=== PATIENT | female | born 1945 | race Caucasian/White ===

== ENCOUNTER 2020-02-23 15:10 | Outpatient (CLI) | payer MEDICARE, SELFPAY ==
--- NOTE | 2020-02-23 | USCV_ITS ---
Yaneli Hurst Age: 75 Gender: F : 1945 Exam Date: 02/23/2020 15:54 Ordering Phys: Zina Bradshaw MD Technologist: Fan Wilson Exam Location: [facility] [place] Indication: SOB BP: 124 / 70 HR: 60 Rhythm: Sinus Technical Quality: Good MEASUREMENTS (Male / Female) Normal Values 2D ECHO LV Diastolic Diameter PLAX 3.9 cm 4.2 - 5.9 / 3.9 - 5.3 cm LV Systolic Diameter PLAX 2.6 cm IVS Diastolic Thickness 0.7 cm 0.6 - 1.0 / 0.6 - 0.9 cm IVS Systolic Thickness 1.3 cm LVPW Diastolic Thickness 1.1 cm 0.6 - 1.0 / 0.6 - 0.9 cm LVPW Systolic Thickness 1.4 cm LVOT Diameter 2.1 cm LV Ejection Fraction 2D Teich 61.7 % LV Ejection Fraction MOD 2C 65.0 % LV Ejection Fraction 2C AL 64.4 % LA Diameter 3.3 cm LA Width 3.5 cm LA Height 3.5 cm RA Width 3.0 cm RA Height 4.1 cm M-MODE LV Diastolic Diameter MM 4.4 cm 4.2 - 5.9 / 3.9 - 5.3 cm LV Systolic Diameter MM 2.5 cm LV Ejection Fraction MM Teich 75.8 % IVS Diastolic Thickness MM 1.0 cm 0.6 - 1.0 / 0.6 - 0.9 cm IVS Systolic Thickness MM 1.5 cm LVPW Diastolic Thickness MM 1.0 cm 0.6 - 1.0 / 0.6 - 0.9 cm LVPW Systolic Thickness MM 1.7 cm RV Diastolic Diameter MM 1.7 cm Aortic Annulus Diameter 2.7 cm LA Ao Ratio MM 1.2 MV E Point Septal Separation 1.1 cm DOPPLER AV Peak Velocity 142.0 cm/s LVOT Peak Velocity 84.0 cm/s AV Area Cont Eq vti 1.8 cm squared AV Area Cont Eq pk 2.0 cm squared MV Area PHT 5.0 cm squared Mitral E to A Ratio 0.5 MV E' Velocity 52.0 cm/s TR Peak Velocity 243.0 cm/s TR Peak Gradient 23.7 mmHg TV Peak E Velocity 108.0 cm/s Right Atrial Pressure 3.0 mmHg Pulmonary Artery Systolic Pressu 26.6 mmHg PV Peak Velocity 89.0 cm/s FINDINGS Left Ventricle Normal left ventricular cavity size. Normal left ventricular systolic function. No regional wall motion abnormalities. Left ventricular ejection fraction is estimated at 65 %. Grade I/IV diastolic dysfunction (abnormal relaxation filling pattern), normal to mildly elevated filling pressures. Right Ventricle The right ventricle is normal in size and function. Right Atrium The right atrium is normal in size. Left Atrium The left atrium is normal in size. Mitral Valve Structurally normal mitral valve without significant stenosis or prolapse. There is moderate mitral regurgitation. Aortic Valve Structurally normal aortic valve without significant sclerosis or stenosis. There is no aortic regurgitation. Tricuspid Valve Moderate tricuspid valve regurgitation. Pulmonic Valve Structurally normal pulmonic valve without significant stenosis. There is no pulmonic regurgitation. Pericardium Normal pericardium without effusion. Aorta Normal ascending aorta dimension. CONCLUSIONS 1-Normal left ventricular cavity size. Normal left ventricular systolic function. No regional wall motion abnormalities. Left ventricular ejection fraction is estimated at 65 %. Grade I/IV diastolic dysfunction (abnormal relaxation filling pattern), normal to mildly elevated filling pressures. 2-Moderate tricuspid valve regurgitation. 3-There is no pericardial effusion. 4- There is moderate mitral regurgitation. 5-Right atrial pressure is around 5 mm of mercury. 6-No significant change since the prior echocardiogram study of 12/22/2014. Mitchel Monique MD (Electronically Signed) Final Date: 23 February 2020 18:01 S
== END 2020-02-23 15:11 | disposition home or self-care (01) ==
LOC: RT 15:12 → RAD 15:21
PROVIDERS: Visit Provider Family Medicine
DX: R06.02 Shortness of breath (principal); I08.1 Rheumatic disorders of both mitral and tricuspid valves
CPT/HCPCS: 93306

== ENCOUNTER 2020-04-19 07:54 | Outpatient (CLI) | payer MEDICARE, SELFPAY ==
--- NOTE | 2020-04-19 14:09 | PFTS_ITS ---
Date of Study:04/19/20 Date of Dictation: MECHANICS: Forced vital capacity (FVC) is normal. Forced expiratory volume in one second (FEV1) is normal. FEV1/FVC is normal. FLOW VOLUME LOOP: Normal. LUNG VOLUMES: Total lung capacity (TLC) is normal. Residual volume (RV) is normal. DIFFUSING CAPACITY FOR CARBON MONOXIDE: Moderately reduced. INTERPRETATION: The pulmonary function tests are normal. No postbronchodilator spirometry was performed. Lung volumes are normal. Gas exchange (DLCO) is moderately reduced. MTDD
== END 2020-04-19 07:55 | disposition home or self-care (01) ==
LOC: RT 07:58
PROVIDERS: Visit Provider Family Medicine
DX: R06.02 Shortness of breath (principal)
CPT/HCPCS: 94010; 94726; 94729

== ENCOUNTER 2020-04-28 16:10 | Outpatient (CLI) | payer MEDICARE, SELFPAY ==
--- NOTE | 2020-04-28 16:23 | CTR_ITS ---
PROCEDURE INFORMATION: Exam: CT Chest Without Contrast Exam date and time: 04/28/2020 4:27 PM Age: 75 years old Clinical indication: Shortness of breath; Prior surgery; Surgery date: 6+ months; Surgery type: Lt breast TECHNIQUE: Imaging protocol: Computed tomography of the chest without contrast. Radiation optimization: All CT scans at this facility use at least one of these dose optimization techniques: automated exposure control; mA and/or kV adjustment per patient size (includes targeted exams where dose is matched to clinical indication); or iterative reconstruction. COMPARISON: CT chest w con* [id number] 01/19/2016 9:54 AM RADIATION DOSE METRICS: Total DLP (mGy-cm): 378.59 FINDINGS: Lungs: There is increasing/new interstitial and ground-glass opacities in both lower lobes. There is unchanged bronchiectasis with peribronchial thickening and some scattered mucous plugging. Many of the multiple pulmonary nodules are unchanged including the posterior left apical 5 mm nodule image 9 and a 7 mm anterior nodule right lung image 29. There is a new pleural base mass left lung image 36 measuring 1.0 x 1.3 cm and a new nodule in the right lung image 32 measuring 5 mm in size. Additional subcentimeter nodules in the right middle lobe image 32 and right lower lobe image 41 are unchanged. Previously visualized ground-glass opacity in the right middle lobe has improved but is not completely resolved. There is no dense lobar consolidation. There is unchanged left apical ground-glass opacity/pleural thickening with calcification image 11. Pleural space: Unremarkable. No pneumothorax. No pleural effusion. Heart: The heart is enlarged. Mediastinal space: A small hiatal hernia is present. Aorta: Unremarkable. No aortic aneurysm. Lymph nodes: There is no pathologic axillary adenopathy. Postoperative changes of a left axillary node dissection and left breast lumpectomy are noted. There is an 8 mm short axis lymph node left axilla with a fatty center. Multiple subcentimeter mediastinal lymph nodes are noted in there is no pathologic mediastinal or hilar adenopathy. Bones/joints: Unremarkable. No acute fracture. Soft tissues: Unremarkable. CT/CT chest wo con [id number] IMPRESSION: 1. There is increasing/new interstitial and ground-glass opacities in both lower lobes. 2. Multiple pulmonary nodules. Many of the nodules are unchanged in appearance but there is a new pleural base mass left lung and a new pulmonary nodule in the apical segment right lower lobe. Fleischner Society follow up recommendations for incidental nodules are not indicated. Follow up per the patient's medical condition. Radiation Dose CTDIVOL = (mGy): DLP = 378.59 (mGy-cm)
== END 2020-04-28 16:11 | disposition home or self-care (01) ==
LOC: CT 16:16
PROVIDERS: PCP Family Medicine; Visit Provider Internal Medicine Pulmonary Disease
DX: R06.02 Shortness of breath (principal); R91.8 Other nonspecific abnormal finding of lung field
CPT/HCPCS: 71250

== ENCOUNTER → 2020-06-06 11:33 | Outpatient (BNVA) | payer MEDICARE, SELFPAY | PROVIDERS: PCP Family Medicine; Visit Provider Internal Medicine Critical Care Medicine | DX: Z20.828 Contact with and (suspected) exposure to other viral communicable diseases (principal) | CPT/HCPCS: 87635 ==

== ENCOUNTER 2020-06-10 05:52 | Day surgery (SDC) | payer MEDICARE, SELFPAY ==
[2020-06-09 07:33] VITALS: BMI 25.7
[2020-06-10 06:02] VITALS: BP 135/70; PULSE 49; RESP 18; TEMP 36.1; O2SAT 99
[2020-06-10] MEDS: sodium chloride 0.9% 1,000 ML 30 ML IV (06:24)
--- NOTE | 2020-06-10 06:51 | ANES.PREANE2 ---
Pre-Anesthetic Assessment Pre-Anesthetic Assessment: Height/Weight: Height 1.63 m Weight 68.039 kg Temp Pulse Resp BP Pulse Ox 97 F L 49 L 18 135/70 99 06/10/20 06:02 06/10/20 06:02 06/10/20 06:02 06/10/20 06:02 06/10/20 06:02 Preop Diagnosis: Suspected metastatic cancer Proposed Procedure: Operation Date: 06/10/20 07:00 Proposed Procedures p Ebus R91.1 [id number](Not Applicable) - Parris Huffman MD Was Beta Brad taken within 24 hours: Yes Last intake: Intake Last Liquid Date 06/09/20 Last Liquid Time 23:30 Last Solid Date 06/09/20 Last Solid Time 20:00 Social: Social History: No alcohol and No tobacco Exam: Pre-Anes Outpt Exam: oriented x 3, clear to auscultation bilaterally and regular rate & rhythm Airway: Submandibular: WNL Cervical ROM: WNL MP: 2 Dentition: Full Pulmonary: Pulmonary: HARKINS CV/HEM: CV/HEM: HTN : : None reported Hepatic: Hepatic: None reported GI: GI: None reported Metabolic: Metabolic: None reported Musc/skel: Musc/skel: None reported Neuropsych: Neuropsych: None reported Anesthetic Plan: ASA status: 2 Anesthesia: General Risk of > 500 ml blood loss (7ml/kg in children): No Meds/Allergies Current Medications: Current Medications Generic Name Dose Route Start Last Admin Trade Name Freq PRN Reason Stop Dose Admin Sodium Chloride 1,000 mls @ 30 ml s/hr 06/10/20 06:00 06/10/20 06:24 Sodium Chloride 0.9% IV 06/11/20 05:59 30 mls/hr .Q24H GERI Administration PFSH Anesthesia PFSH: Surgical History H/O colonoscopy H/O right cataract extraction Family History Mother Hypertension Father Hypertension Stroke Social History Smoking and tobacco status: never smoked Second hand smoke exposure: Yes Smoking risk assessment/counseling performed?: No Alcohol intake: current Alcohol intake frequency: holidays/special occasions only Lives independently: Yes Household members: spouse Housing: House Marital status: Current occupational status: retired Pets and animals: Yes History of recent travel: No Current gender identity: Female Data Anesthesia Cardiac Studies: No Data to Display
--- NOTE | 2020-06-10 06:54 | W.PM.OPSUD ---
Surgery/Procedure H&P Update DATE OF PROCEDURE: June 10, 2020 DATE H&P PERFORMED: 06/06/20 H&P UPDATE INFORMATION: I have reviewed H&P completed within last 30 days, I have examined patient prior to procedure and No changes to prior documentation PREOP DIAGNOSIS: Suspected metastatic cancer PRIMARY INDICATION FOR PROCEDURE: Suspected metastatic breast cancer PLANNED PROCEDURE: Bronchoscopy with inspection of the airway, endobronchial sound guided transbronchial needle aspiration of lymph nodes and control of bleeding Operation Date: 06/10/20 07:00 Proposed Procedures p Ebus R91.1 [id number](Not Applicable) - Biplab MD Nathanael
[2020-06-10] MEDS: lidocaine 1% INJ 20 mL INTRAVESIC (07:31)
[2020-06-10 08:13] VITALS: BP 170/81; PULSE 72; RESP 12; TEMP 36.1; O2SAT 99
[2020-06-10 08:20] VITALS: BP 156/83; PULSE 58; RESP 15; O2SAT 100
--- NOTE | 2020-06-10 08:22 | PM.OP ---
Operative Report Date of procedure: June 10, 2020 Pre-op Diagnosis: Suspected metastatic cancer Post-op diagnosis: same Brief History: This is a 75-year-old lady with history of stage I breast cancer coming in with recently identified PET positive hilar midsternal lymphadenopathy. The patient underwent bronchoscopy, endobronchial sound guided transbronchial needle aspiration of lymph nodes Procedure: Name of the procedure: Bronchoscopy with inspection of the airway, bronchoalveolar lavage, endobronchial ultrasound-guided transbronchial needle aspiration of lymph nodes and control of bleeding. Indication: Suspected metastatic lung cancer Anesthesia: General anesthesia. Local anesthesia: The kylah in the right and left mainstem bronchi were anesthetized with 1% lidocaine, 3 mL. Description of the procedure: The procedure was explained to the patient and the consent was obtained. The patient was brought to the OR. The patient underwent endotracheal intubation for general anesthesia. Following induction of general anesthesia, the bronchoscope was advanced through the ET tube. The lower trachea appeared to be normal. The kylah was sharp. The kylah, the right and left mainstem bronchi are anesthetized with 1% lidocaine. In a systematic manner bilateral bronchial tree was then examined. The bronchoscope was advanced into the left mainstem bronchus. There was no erythema, or areas of cobblestoning. The left upper lobe, lingula and left lower lobe bronchi were examined up to the third subsegmental level and no abnormalities were identified. There is no endobronchial lesion, active bleeding or mucous plug. The bronchoscope was then introduced into the right mainstem bronchus. The right upper lobe, right middle lobe and right lower lobe bronchi were examined up to the third subsegmental level and no abnormalities were identified. There was mild secretion throughout the airways. Bronchoalveolar lavage was performed from the medial segment of the right middle lobe. 60 mL of saline was instilled, fluid return was 25 mL. The fluid was cloudy. The endobronchial ultrasound was introduced through the ET tube. Mediastinal and hilar lymphadenopathy was identified with the ultrasound. Fine-needle aspiration was performed from station 7 and 10. Samples: 1. Bronchoalveolar lavage specimen was sent for cell count and differential, CD4 CD8 ratio, Gram stain and culture, fungal stain and culture, AFB stain and culture and cytology. 2. The transbronchial needle aspiration of the aforementioned lymph node groups were sent for cytology and histopathology. Complications: There was no immediate complications.
[2020-06-10 08:25] VITALS: BP 159/74; PULSE 56; RESP 16; TEMP 36.1; O2SAT 95
[2020-06-10 08:32] VITALS: BP 140/91; PULSE 50; RESP 16; TEMP 36.1; O2SAT 98
--- NOTE | 2020-06-10 08:32 | XR_ITS ---
WS: [id number] Portable AP upright chest, 06/10/2020 Clinical Data: post bronchoscopy Comparison: PA and lateral chest, 08/07/2018. Findings: No nodules, masses or effusions are seen. The heart is normal. The pulmonary vascularity is not increased. There are clips adjacent to the left cardiac border and also in the left axilla from surgery. There is a left cardiophrenic fat pad or cyst present. The aortic arch and descending aorta show tortuosity. XR/XR chest 1V portable [id number] Impression: 1. Atherosclerosis. 2. No change in probable left cardio phrenic fat pad or cyst.
[2020-06-10 09:00] VITALS: BP 151/84; PULSE 50; RESP 18; O2SAT 98
--- NOTE | 2020-06-10 09:25 | P.PCN_ITS ---
PACU note PACU note: VSS, Good respiratory effort, report to COLD REDUCTION ROLLER Post-Anesthesia Exam: awake Disposition: other
--- NOTE | 2020-06-10 09:25 | PM.PACU ---
PACU note PACU note: VSS, Good respiratory effort, report to ELEVATOR CONSTRUCTOR HELPER Post-Anesthesia Exam: awake Disposition: other
--- NOTE | 2020-06-10 09:33 | ANE.PACU2 ---
Inpatient post-anesthesia follow up: Airway intact: Yes Vital signs: Temperature 97 F Pulse Rate 50 Respiratory Rate 18 Blood Pressure 151/84 Pulse Oximetry 98 Oxygen Delivery Me thod Room Air Oxygen Flow Rate 6 Fraction of Inspir ed Oxygen Hydration adequate: Yes Nausea and vomiting: No Pain level: 1 Mental status: Baseline
--- NOTE | 2020-06-10 10:00 | PTH.EBUS ---
Endobronchial Ultrasound Specimen(s): Lymph node, station 7 Gross: Specimen is received fresh on a single slide labeled with the patient's name and date of , measuring 2 cc of blood and 5 Diff-Quik slides are made first cytology and rapid onsite interpretation. Preliminary Impression: Lymph node, station 7, EBUS, cytology, rapid onsite evaluation: ?Peripheral blood elements. ?Negative for malignancy. - Specimen Information Pathologist: Aman Wei Date: 06/10/20 Specimen reported at what time: 08:35 - Clinician Specimen collection time: 08:10 Clinician reported to: Parris Huffman
[2020-06-20 14:29] LABS: Miscellaneous Test See Scanned Lab Rpt
== END 2020-06-10 09:28 | disposition home or self-care (01) ==
PROVIDERS: PCP Family Medicine; Visit Provider Internal Medicine Critical Care Medicine
PROC: BB4BZZZ Ultrasonography of Pleura (ICD-10-PCS; principal; 2020-06-10 07:00)
DX: R91.1 Solitary pulmonary nodule (principal); Z79.82 Long term (current) use of aspirin; I10 Essential (primary) hypertension
CPT/HCPCS: 12345; 31625; 31627; 71045; 80500; 87015; 87070; 87102; 87116; 87176; 87205; 87206; 87801; 88305; J1100; J2370; J2405; J2704; J2710; J3010; J3490; J7030

== ENCOUNTER 2020-10-10 12:00 | Outpatient (CLI) | payer MEDICARE, SELFPAY | END 2020-10-10 12:01 | disposition home or self-care (01) | LOC: SLEEP 10-11 10:31 | PROVIDERS: PCP Family Medicine; Visit Provider Internal Medicine Pulmonary Disease | DX: G47.34 Idiopathic sleep related nonobstructive alveolar hypoventilation (principal) | CPT/HCPCS: 94762 ==

== ENCOUNTER 2020-12-28 12:00 | Outpatient (CLI) | payer MEDICARE, SELFPAY | END 2020-12-28 12:01 | disposition home or self-care (01) | LOC: SLEEP 12-29 13:00 | PROVIDERS: PCP Family Medicine; Visit Provider Internal Medicine Pulmonary Disease | DX: G47.33 Obstructive sleep apnea (adult) (pediatric) (principal); G47.34 Idiopathic sleep related nonobstructive alveolar hypoventilation; I27.21 Secondary pulmonary arterial hypertension | CPT/HCPCS: G0399 ==

== ENCOUNTER → 2022-04-19 10:44 | Outpatient (BNVA) | payer MEDICARE, SELFPAY | PROVIDERS: PCP Family Medicine; Visit Provider Podiatrist Foot & Ankle Surgery | DX: B35.1 Tinea unguium (principal) | CPT/HCPCS: 11720; 99203; 99204 ==

== ENCOUNTER → 2022-06-21 09:01 | Outpatient (BNVA) | payer MEDICARE, SELFPAY | PROVIDERS: PCP Family Medicine; Visit Provider Podiatrist Foot & Ankle Surgery | DX: B35.1 Tinea unguium (principal) | CPT/HCPCS: 99213 ==

== ENCOUNTER → 2022-10-31 15:08 | Outpatient (BNVA) | payer MEDICARE, SELFPAY | PROVIDERS: PCP Family Medicine; Visit Provider Podiatrist Foot & Ankle Surgery | DX: B35.3 Tinea pedis (principal); B35.1 Tinea unguium | CPT/HCPCS: 99213 ==

== ENCOUNTER 2022-11-03 10:09 | Emergency (ER) | payer MEDICARE, SELFPAY ==
[2022-11-03 10:15] VITALS: BP 148/101; PULSE 54; RESP 16; TEMP 36.7; O2SAT 96; BMI 24.9
--- NOTE | 2022-11-03 10:22 | XRR_ITS ---
PROCEDURE INFORMATION: Exam: XR Right Ankle Exam date and time: 11/03/2022 10:38 AM Age: 77 years old Clinical indication: Injury or trauma; Fall; Blunt trauma; Ankle; Right; Additional info: Fall injury TECHNIQUE: Imaging protocol: Radiologic exam of the right ankle. Views: 3 or more views. COMPARISON: No relevant prior studies available. FINDINGS: Bones/joints: Negative for acute bony abnormality. Soft tissues: Normal. XR/XR ankle RT min 3V* [id number] IMPRESSION: No acute findings.
--- NOTE | 2022-11-03 10:22 | XRR_ITS ---
PROCEDURE INFORMATION: Exam: XR Right Foot Exam date and time: 11/03/2022 10:38 AM Age: 77 years old Clinical indication: Injury or trauma; Fall; Blunt trauma; Foot; Right; Additional info: Fall injury TECHNIQUE: Imaging protocol: Radiologic exam of the right foot. Views: 3 or more views. COMPARISON: No relevant prior studies available. FINDINGS: Bones/joints: Negative for acute bony abnormality. Soft tissues: Normal. XR/XR foot RT min 3V* [id number] IMPRESSION: No acute findings.
--- NOTE | 2022-11-03 10:41 | ED_ITS ---
HPI - Extremity Problem General: Chief complaint: Extremity Injury, Lower Stated complaint: fall, hurt foot Time Seen by Provider: 11/03/22 10:21 History of Present Illness: Patient is a 77-year-old female comes to the ED with right foot injury. Patient states that she was in a sitting position while cleaning up a mess on the floor. She states that she went to stand up and she rolled her right foot and ankle. She is now having pain in in her right foot that she describes as mild when at rest. Pain is located at the top midfoot region. Pain worsens with ambulation. Denies any other injuries. Associated symptoms: Deny chest pain, fever(s) or rash Review of Systems Const: Denies: fever(s), chills or fatigue Eyes: Denies: change in vision or eye discomfort ENMT: Denies: throat pain, odynophagia, nasal discharge or nasal congestion Card: Denies: chest pain, palpitations, edema, swelling of feet/ankles, dyspnea on exertion or orthopnea Resp: Denies: dyspnea, productive cough or non-productive cough GI: Denies: abdominal pain, nausea, vomiting, diarrhea, constipation or hematochezia : Denies: flank pain, dysuria or hematuria Musc: Reports: extremity pain (Right foot); Denies: neck pain, back pain or extremity swelling Skin/Breast: Denies: rash or new lesions Neuro: Denies: headache(s), numbness in extremities or weakness in extremities [facility] PFSH: Surgical History H/O colonoscopy H/O right cataract extraction Family History Mother Hypertension Father Hypertension Stroke Social History Smoking and tobacco status: never smoked Second hand smoke exposure: Yes Smoking risk assessment/counseling performed?: No Alcohol intake: current Alcohol intake frequency: holidays/special occasions only Substance/Drug Use: never Lives independently: Yes Household members: spouse Housing: House Marital status: Current occupational status: retired Pets and animals: Yes Do you think of yourself as: Straight/Heterosexual Current gender identity: Female Physical Exam Const: COMMON NORMALS: patient oriented x3 HENMT: COMMON NORMALS: normocephalic HEAD & SCALP: normocephalic MOUTH: Normal oral and palatal mucosa present THROAT: posterior oropharynx normal and uvula midline Neck/C-Spine: COMMON NORMALS: supple GENERAL: Yes normal visual inspection Resp: COMMON NORMALS: normal respiratory effort, No retractions, No use of accessory muscles and clear to auscultation bilaterally AUSCULTATION: clear to auscultation bilaterally Cardio: COMMON NORMALS: regular rate, regular rhythm, S1 normal heart sound present, S2 normal heart sound present, No gallops present (Cardio), No clicks present (Cardio), No murmurs present (Cardio) and Peripheral pulses 2+ throughout RATE: regular rate RHYTHM: regular rhythm HEART SOUNDS: S1 normal heart sound present and S2 normal heart sound present PERIPHERAL PULSES: Peripheral pulses 2+ throughout GI: COMMON NORMALS: Normal to inspection, nondistended, normoactive bowel sounds present, Soft to palpation, non-tender and no masses PALPATION: Yes Soft to palpation : COMMON NORMALS: Yes no CVA tenderness BLADDER/KIDNEY EXAM: Yes no CVA tenderness Back/Pelvis: COMMON NORMALS: no CVA tenderness Extremity: COMMON NORMALS: normal to inspection, full ROM and capillary refill normal NARRATIVE EXTREMITY EXAM: Exam of right foot is benign and she has no swelling, bruising or deformity noted. Neuro: COMMON NORMALS: patient oriented x3 GAIT: Yes Normal gait present Course Vital Signs: Vital signs: Vital Signs Temperature 98.1 F 11/03/22 11:50 Pulse Rate 54 L 11/03/22 11:50 Respiratory Rate 16 11/03/22 11:50 Blood Pressure 148/101 11/03/22 11:50 Pulse Oximetry 96 11/03/22 11:50 Oxygen Delivery Me thod Room Air 11/03/22 10:15 MDM - Extremity (Nontraumatic) Medical Decision Making Patient is a 77-year-old female comes to the ED with right foot injury. Patient states that she was in a sitting position while cleaning up a mess on the floor. She states that she went to stand up and she rolled her right foot and ankle. She is now having pain in in her right foot that she describes as mild when at rest. Pain is located at the top midfoot region. Pain worsens with ambulation. Denies any other injuries. Vitals are stable. Exam of right foot is benign and she has no swelling, bruising or deformity noted. X-ray of right ankle right foot showed no acute fractures or findings. Patient was diagnosed with a right foot sprain. She was discharged home with some crutches. Told to follow- up with her PCP in the next week for reevaluation. Return to ED precautions given. Patient understood and agreed with plan. Lab Data Radiology Impressions Ankle X-Ray 11/03/22 10:22 IMPRESSION: No acute findings. Foot X-Ray 11/03/22 10:22 IMPRESSION: No acute findings. Discharge Plan Discharge Patient Disposition: Home Clinical Impression: Right foot sprain Qualifiers: Encounter type: initial encounter Qualified Code(s): S93.601A - Unspecified sprain of right foot, initial encounter Condition: Stable Prescriptions: No Action multivitamin Capsule 1 cap PO DAILY venlafaxine 75 mg capsule,extended release 24hr 37.5 mg PO DAILY magnesium 200 mg tablet 200 mg PO DAILY Glucosamine-Chondroitin Complx Capsule 1 cap PO DAILY calcium carbonate-vitamin D3 [Calcium 500 + D] 500 mg(1,250mg) -200 unit tablet 1 tab PO DAILY aspirin [Adult Low Dose Aspirin] 81 mg tablet,delayed release (DR/EC) 81 mg PO DAILY omega-3 fatty acids [Fish Oil Concentrate] 1,000 mg capsule 1,000 mg PO DAILY metoprolol succinate 50 mg capsule,sprinkle,ER 24hr 50 mg PO BID Discharge Orders: Discharge ED (Routine); Ordered 11/03/22 Ordered By: Gurmeet Jennings Referrals: Zina Bradshaw MD [Primary Care Provider] - Discharge Diet: Regular Discharge Activity: Increase activity as tolerated and Use walker/crutches as instructed Activity Restrictions/Additional Instructions: Follow-up with medical provider as directed in the next 5 to 7 days for reevaluation. Use crutches and limit weightbearing for the next 2 to 3 days and slowly advance weightbearing as tolerated. Rest, ice and elevate right foot. Take [id number] ibuprofen or Tylenol for pain. Return to the ER or your medical provider if condition worsens. Please read and understand discharge instructions. Thank you for choosing [facility] for your healthcare needs today. Please realize this is an emergency room and that we are providing you with a medical screening exam and this may not be complete and all inclusive of all the testing and or work up that you may need to determine your ailment or severity of your illness. It is very important that you follow up as instructed or that you return to the Emergency Department should you have concerns or if your condition changes or worsens in any way. Coding Level of Care Code ED Furnace Filler for Judi Sales
[2022-11-03 11:50] VITALS: BP 148/101; PULSE 54; RESP 16; TEMP 36.7; O2SAT 96
== END 2022-11-03 11:51 | disposition home or self-care (01) ==
PROVIDERS: Emergency Provider Physician Assistant; PCP Family Medicine
DX: S93.601A Unspecified sprain of right foot, initial encounter (principal); Z79.82 Long term (current) use of aspirin; Z77.22 Contact with and (suspected) exposure to environmental tobacco smoke (acute) (chronic); X50.1XXA Overexertion from prolonged static or awkward postures, initial encounter
CPT/HCPCS: 73610; 73630; 99283

== ENCOUNTER → 2022-12-09 13:36 | Outpatient (BNVA) | payer MEDICARE, SELFPAY | PROVIDERS: PCP Family Medicine; Visit Provider Nurse Practitioner Family | DX: R39.9 Unspecified symptoms and signs involving the genitourinary system (principal); N30.90 Cystitis, unspecified without hematuria | CPT/HCPCS: 81000; 87077; 87086; 87184 ==

== ENCOUNTER 2022-12-27 15:17 | Outpatient (CLI) | payer MEDICARE, SELFPAY ==
--- NOTE | 2022-12-27 15:40 | XR_ITS ---
WS: [id number] SCREENING DEXA SCAN [facility] CLINICAL INFORMATION: OSTEOPENIA OF MULTIPLE SITES COMPARISON: None. FINDINGS: The L1-L4 bone mineral density measures 1.253 g/cm2. This corresponds to a T score score of 0.6 and Z score of 2.4. Left femoral neck bone mineral density measures 0.914 g/cm2. This corresponds to a T score of -0.7 an d Z score of 1.2. Right femoral neck bone mineral density measures 0.982 g/cm2. This corresponds to a T score -0.2of an d Z score of 1.8. Mean femoral neck bone mineral density measures 0.948 g/cm2. This corresponds to a T score of -0.5 an d Z score of 1.5. XR/XR DEXA axial skeleton* [id number] IMPRESSION: Normal bone mineralization. Patient's FRAX calculated 10 year probability for major osteoporotic fracture i s 11.6 % and osteoporotic hip fracture is 2.2%.
== END 2022-12-27 15:18 | disposition home or self-care (01) ==
PROVIDERS: PCP Family Medicine; Visit Provider Internal Medicine Hematology & Oncology
DX: M85.89 Other specified disorders of bone density and structure, multiple sites (principal)
CPT/HCPCS: 77080

== ENCOUNTER 2024-02-19 13:10 | Outpatient (RCR) | payer MEDICARE, SELFPAY | END 2024-03-07 23:59 | disposition home or self-care (01) | LOC: SPT 13:10 | PROVIDERS: Visit Provider Family Medicine | DX: H81.10 Benign paroxysmal vertigo, unspecified ear (principal) | CPT/HCPCS: 97161 ==

== ENCOUNTER 2024-04-02 14:08 | Emergency (ER) | payer MEDICARE, SELFPAY ==
[2024-04-02 14:27] VITALS: BP 142/69; PULSE 54; RESP 20; TEMP 37; O2SAT 96; BMI 24.0
--- NOTE | 2024-04-02 14:37 | ECG_ITS ---
[facility] Test Date: 2024-04-02 Pat Name: Yaneli Hurst Department: Room: Gender: Female Coupon Collection Clerk: : 1945 Requested By: Gallito Hunt Order Number: [id number] Aislinn MD: Vladimir Rivers M.D. Measurements Intervals [place] Rate: 51 P: 85 IN: 236 QRS: 16 QRSD: 76 T: 55 QT: 441 QTc: 409 Interpretive Statements SINUS BRADYCARDIA WITH FIRST DEGREE AV BLOCK LOW QRS VOLTAGE IN PRECORDIAL LEADS [QRS DEFLECTION < 1.0 mV IN CHEST LEADS] MINIMAL ST DEPRESSION [0.025+ mV ST DEPRESSION] No previous ECG available for comparison Electronically Signed On 04-02-2024 16:34:40 CDT by Vladimir Rivers M.D. [email or web address]
--- NOTE | 2024-04-02 14:37 | CTR_ITS ---
PROCEDURE INFORMATION: Exam: CT Head Without Contrast Exam date and time: 04/02/2024 2:54 PM Age: 79 years old Clinical indication: Dizziness; Additional info: Dizziness worsening TECHNIQUE: Imaging protocol: Computed tomography of the head without contrast. Radiation optimization: All CT scans at this facility use at least one of these dose optimization techniques: automated exposure control; mA and/or kV adjustment per patient size (includes targeted exams where dose is matched to clinical indication); or iterative reconstruction. COMPARISON: No relevant prior studies available. RADIATION DOSE METRICS: Total DLP (mGy-cm): 1029 FINDINGS: Brain: Mild nonspecific white matter low attenuation which may be related to microvascular ischemic changes. No acute confluent lobar ischemic infarct. No acute intracranial hemorrhage. Cerebral ventricles: The ventricles and sulci are prominent in size compatible with mild atrophy. Paranasal sinuses: Visualized sinuses are unremarkable. No fluid levels. Mastoid air cells: Visualized mastoid air cells are well aerated. Bones: No acute calvarial fracture. Soft tissues: Visualized soft tissues are unremarkable. CT/CT head wo con* [id number] IMPRESSION: No acute intracranial abnormality. If symptoms persist, consider further evaluation with MRI, if MRI is clinically safe to obtain.
--- NOTE | 2024-04-02 14:37 | XR_ITS ---
WS: [id number] Portable AP upright chest, 04/02/2024 Clinical Data: dizziness, SOB Comparison: Portable chest, 06/10/2020 Findings: No nodules, masses or effusions are seen. The heart is normal. The pulmonary vascularity is not increased. No pneumonia or pneumothorax is seen. There are surgical clips adjacent to the left c ardiac border and in the left axilla. The aortic arch and descending thoracic aorta show mild calcifi cation and tortuosity. XR/XR chest 1V portable [id number] Impression: Atherosclerosis.
--- NOTE | 2024-04-02 14:40 | ED_ITS ---
HPI - Dizziness 2 General: Chief Complaint: Dizziness Stated Complaint: sob, dizzy, weak Time Seen by Provider: 04/02/24 14:27 Source: patient Mode of arrival: ambulatory Limitations: no limitations History of Present Illness: HPI Narrative: Patient is an 79-year-old female who presents the emergency department complaining of worsening dizziness that she has had for 2 months. States it has been worsening over the past week or so, and has been worked up by her primary care provider and she also has appointments with cardiology scheduled in May. She states that due to the worsening dizziness, worsening shortness of breath, and overall feeling of weakness that she is fearful that she is going to start falling at home. States that the dizziness is a sensation of lightheadedness, denies room spinning sensation. Does state that it is worse with standing, however lately she has been feeling it even while lying flat. Reports pertinent medical history of hypertension that she has underwent multiple medication changes recently, is currently only taking metoprolol once a day as well as amlodipine. She is denying any chest pain, headache, visual changes, nausea/vomiting, or other symptoms at this time. Further she is denying any symptoms of urinary tract infection, though states that she has a history of these and has had somewhat similar symptoms in the past MD elicited complaint: dizziness Onset (ago): month(s) Timing: constant Description: lightheadedness History of similar symptoms: Yes Exacerbating factors: change in body position Relieving factors: nothing Associated symptoms: Denies chest pain, chills, headache(s), nausea, palpitations or vomiting Associated neuro symptoms: Deny confusion or numbness in extremities Related Data Home Medications Medication Instructions Recorded Confirmed aspirin 81 mg tablet,delayed 81 mg PO DAILY 04/22/20 12/09/22 release (Adult Low Dose Aspirin) calcium carbonate 500 mg-vitamin 1 tab PO DAILY 04/22/20 12/09/22 D3 5 mcg (200 unit) tablet (Calcium 500 + D) [id number] C-Mn 1 cap PO DAILY 04/22/20 12/09/22 capsule (Glucosamine-Chondroitin Complex capsule) magnesium 200 mg tablet 200 mg PO DAILY 04/22/20 12/09/22 multivitamin 1 cap PO DAILY 04/22/20 12/09/22 omega-3 fatty acids 1,000 mg 1,000 mg PO DAILY 04/22/20 12/09/22 capsule (Fish Oil Concentrate) venlafaxine 75 mg capsule,extended 37.5 mg PO DAILY 04/22/20 12/09/22 release 24 hr metoprolol succinate 50 mg capsule 50 mg PO BID 04/28/20 12/09/22 sprinkle, ext. release 24 hr Previous Rx's Medication Instructions Recorded nitrofurantoin 100 mg PO BID 5 days #10 caps 12/09/22 monohydrate/macrocrystals 100 mg capsule (Macrobid) cefdinir 300 mg capsule 300 mg PO BID 10 days #20 caps 04/02/24 Allergies Allergy/AdvReac Type Severity Reaction Status Date / Time losartan Allergy Mild cough Verified 12/09/22 13:32 Review of Systems 2 General: Reports: 10 or more systems reviewed and unremarkable except in HPI and below Const: Denies: fever(s), chills or fatigue Eyes: Denies: change in vision ENMT: Denies: throat pain, ear or mastoid pain or nasal discharge Card: Reports: lightheadedness; Denies: chest pain, palpitations or swelling of feet/ankles Resp: Reports: dyspnea; Denies: productive cough or wheezing GI: Denies: abdominal pain, nausea, vomiting, diarrhea or constipation : Denies: flank pain, difficulty voiding, dysuria or urinary frequency Musc: Denies: neck pain, back pain or joint pain Skin/Breast: Denies: rash Neuro: Reports: weakness in extremities and dizziness; Denies: headache(s), numbness in extremities, frequent falls, confusion or Slurred speech present PFSH ED 2 PFSH: Surgical History H/O colonoscopy H/O right cataract extraction Family History Mother Hypertension Father Hypertension Stroke Social History Smoking and tobacco/nicotine status: never used tobacco/nicotine Second hand smoke exposure: Yes Alcohol intake: current Alcohol intake frequency: holidays/special occasions only Substance/Drug Use: never Lives independently: Yes Household members: spouse Housing: House Marital status: Current occupational status: retired Pets and animals: Yes Do you think of yourself as: Straight/Heterosexual Current gender identity: Female Physical Exam 2 Const: COMMON NORMALS: no acute distress, patient oriented x3 and no limitations GENERAL APPEARANCE: cooperative, comfortable and well developed ORIENTATION/CONSCIOUSNESS: Yes awake, Yes oriented to person, Yes oriented to place and Yes oriented to time HENMT: COMMON NORMALS: normocephalic, atraumatic and hearing grossly normal bilaterally HEAD & SCALP: normocephalic and atraumatic OTHER: Dry oral mucosa. Eye: COMMON NORMALS: EOMs intact bilaterally and conjunctivae normal C ONJUNCTIVA: Yes conjunctivae normal Neck/C-Spine: COMMON NORMALS: full ROM, supple and no JVD Resp: COMMON NORMALS: normal respiratory effort, No retractions, No use of accessory muscles and clear to auscultation bilaterally AUSCULTATION: clear to auscultation bilaterally Cardio: COMMON NORMALS: no JVD, regular rhythm, No clicks present (Cardio), No murmurs present (Cardio) and No rub (Cardio) RATE: bradycardic RHYTHM: r egular rhythm GI: COMMON NORMALS: Normal to inspection, nondistended, normoactive bowel sounds present, Soft to palpation and non-tender AUSCULTATION: Yes normoactive bowel sounds PALPATION: Yes Soft to palpation RECTAL EXAM: d eferred Extremity: COMMON NORMALS: normal to inspection, full ROM and capillary refill normal Neuro: COMMON NORMALS: patient oriented x3, moves all extremities, no focal motor deficits and no sensory deficits noted SENSORIUM/ORIENTATION: Yes oriented to person, Yes oriented to place and Yes oriented to time Psych: COMMON NORMALS: mental status grossly normal and Normal thought process present THOUGHT PROCESS: Normal thought process present Skin: COMMON NORMALS: no rashes or lesions noted GENERAL SKIN EXAM: no rashes or lesions noted and turgor decreased Course 2 Vital Signs: Vital signs: Vital Signs Temperature 98.6 F 04/02/24 14:27 Pulse Rate 50 L 04/02/24 16:32 Respiratory Rate 16 04/02/24 16:31 Blood Pressure 153/83 04/02/24 16:32 Pulse Oximetry 96 04/02/24 16:31 Oxygen Delivery Me thod Room Air 04/02/24 16:31 MDM - Dizziness Medical Decision Making Patient arrived with worsening of weakness/shortness of breath/dizziness which has been present for 2 months and has been worked up with primary care. States heart rate normally runs in the 50s, has had some medication changes recently where she had her metoprolol switched to once a day. No other pertinent past medical history reported. An EKG was obtained and reviewed with physician showed sinus bradycardia with a first-degree AV block, no other abnormalities. Chest x-ray showed atherosclerosis, and a CT head did not demonstrate any acute abnormalities to explain her dizziness. CBC ordered showed a hemoglobin of 8 and hematocrit of 24.5, when asked patient states she has no history of anemia that she knows of. States she was discontinued with colonoscopies after her last 1 was normal. States she is chronically low in sodium which this was present on CMP today, she was given fluids as skin turgor did appear decreased on physical examination. Her troponin was normal, as well as a nondiagnostic BNP. Urinalysis showed pretty significant urinary tract infection, likely contributing to her worsening of symptoms. Because of the noted anemia, a CT of the abdomen and pelvis ordered did not demonstrate any masses or other signs of an acute blood loss anemia, I do think her anemia potentially due to to an iron deficiency or folate deficiency and this needs evaluated with primary care. This was discussed with the patient in thorough detail, she states she will follow-up with her primary doc early next week and take the cefdinir for her urinary tract infection. This case was discussed with Dr. De La Cruz who agrees with disposition at this time. Lab Data 04/02/24 14:50 04/02/24 14:50 Radiology Impressions Chest X-Ray 04/02/24 14:37 Impression: Atherosclerosis. Head CT 04/02/24 14:37 IMPRESSION: No acute intracranial abnormality. If symptoms persist, consider further evaluation with MRI, if MRI is clinically safe to obtain. Abdomen/Pelvis CT 04/02/24 15:04 IMPRESSION: 1. Mild right-sided hydronephrosis and moderate hydroureter without radiopaque obstructing stone. Recently passed stone or vesicoureteral reflux cannot be excluded. Recommend clinical correlation and follow-up imaging as clinically warranted. 2. Heavy fecal pattern noted compatible with constipation. Recommend clinical correlation. . 3. Nonspecific 0.4 cm right lower lobe lung nodule not clearly seen on prior CT chest dated 04/28/2020. Recommend clinical correlation and follow-up imaging as clinically warranted. Laboratory Results WBC 7.55 10^3/uL (3.29-11.43) 04/02/24 14:50 RBC 2.58 10^6/uL (3.85-5.65) L 04/02/24 14:50 Hgb 8.00 g/dL (11.27-16.99) L 04/02/24 14:50 Hct 24.5 % (36-47) L 04/02/24 14:50 MCV 95.0 fl (85-98) 04/02/24 14:50 MCH 31.0 pg (27-33) 04/02/24 14:50 MCHC 32.7 g/dL (30-55) 04/02/24 14:50 RDW 13.7 % (12.1-15.1) 04/02/24 14:50 Plt Count 317 10^3/cmm (157-399) 04/02/24 14:50 MPV 9.0 fL (7.4-10.4) 04/02/24 14:50 Neut % (Auto) 61.3 % 04/02/24 14:50 Lymph % (Auto) 24.4 % 04/02/24 14:50 [place] % (Auto) 9.9 % 04/02/24 14:50 Eos % (Auto) 3.4 % 04/02/24 14:50 Baso % (Auto) 0.3 % 04/02/24 14:50 Neut # (Auto) 4.63 10^3/uL (1.8-7.7) 04/02/24 14:50 Lymph # (Auto) 1.8 10^3/uL (0.8-4.8) 04/02/24 14:50 [place] # (Auto) 0.8 10^3/uL (0.2-0.9) 04/02/24 14:50 Eos # (Auto) 0.3 10^3/uL (0.0-0.8) 04/02/24 14:50 Baso # (Auto) 0.0 10^3/uL (0.0-0.1) 04/02/24 14:50 Nucleated RBC % (auto) 0 % 04/02/24 14:50 Nucleated RBCs # 0.0 /100WBC 04/02/24 14:50 Sodium 131 mmol/L (136-145) L 04/02/24 14:50 Potassium 4.7 mmol/L (3.5-5.1) 04/02/24 14:50 Chloride 97 mmol/L (98-107) L 04/02/24 14:50 Carbon Dioxide 22 mmol/L (22-29) 04/02/24 14:50 Anion Gap 16.7 (5-19) 04/02/24 14:50 BUN 21 mg/dL (8-23) 04/02/24 14:50 Creatinine 1.0 mg/dL (0.5-0.9) H 04/02/24 14:50 GFR Calculation Not Reportable 04/02/24 14:50 Glucose 119 mg/dL (65-115) H 04/02/24 14:50 Calculated Osmolality 276 mOsm/kg (285-295) L 04/02/24 14:50 Calcium 8.7 mg/dL (8.5-10.5) 04/02/24 14:50 Total Bilirubin 0.2 mg/dL (0.15-1.2) 04/02/24 14:50 AST 21 U/L (0-32) 04/02/24 14:50 ALT 7 U/L (0-33) 04/02/24 14:50 Alkaline Phosphatase 54 U/L (35-105) 04/02/24 14:50 Troponin T Baseline 8 ng/L (0-10) 04/02/24 14:50 NT-Pro-B Natriuret Pep 582 pg/mL (0-450) H 04/02/24 14:50 Total Protein 6.5 g/dL (6.6-8.7) L 04/02/24 14:50 Albumin 3.5 g/dL (3.5-5.2) 04/02/24 14:50 Globulin 3.0 g/dL (1.3-4.6) 04/02/24 14:50 Urine Color Yellow (Yellow) 04/02/24 15:45 Urine Appearance Clear (CLEAR) 04/02/24 15:45 Urine pH 6.5 (5-7) 04/02/24 15:45 Ur Specific [place] 1.008 (1.005-1.030) 04/02/24 15:45 Urine Protein Negative (Negative) 04/02/24 15:45 Urine Glucose (UA) Negative (Normal) 04/02/24 15:45 Urine Ketones Negative (Negative) 04/02/24 15:45 Urine Blood Negative (Negative) 04/02/24 15:45 Urine Nitrate Positive (Negative) A 04/02/24 15:45 Urine Bilirubin Negative (Negative) 04/02/24 15:45 Urine Urobilinogen 0.2 mg/dL (Negative) 04/02/24 15:45 Ur Leukocyte Esterase 3+ (Negative) A 04/02/24 15:45 Urine RBC 0-2 /hpf (0-2) 04/02/24 15:45 Urine WBC >100 /hpf (0-5) H 04/02/24 15:45 Ur Squamous Epith Cells 0-5 /hpf (0-5) 04/02/24 15:45 Amorphous Sediment Not Reportable 04/02/24 15:45 Urine Bacteria 4+ /hpf (NONE) H 04/02/24 15:45 Hyaline Casts 2.05 /lpf 04/02/24 15:45 All radiology interpretation(s) finalized by discharge Discharge Plan Discharge Patient Disposition: Home Clinical Impression: Urinary tract infection Qualifiers: Urinary tract infection type: acute cystitis Hematuria presence: with hematuria Qualified Code(s): N30.01 - Acute cystitis with hematuria Anemia Qualifiers: Anemia type: unspecified type Qualified Code(s): D64.9 - Anemia, unspecified Condition: Stable Prescriptions: New cefdinir 300 mg capsule 300 mg PO BID 10 Days Qty: 20 0RF No Action multivitamin Capsule 1 cap PO DAILY venlafaxine 75 mg capsule,extended release 24hr 37.5 mg PO DAILY magnesium 200 mg tablet 200 mg PO DAILY Glucosamine-Chondroitin Complx Capsule 1 cap PO DAILY calcium carbonate-vitamin D3 [Calcium 500 + D] 500 mg(1,250mg) -200 unit tablet 1 tab PO DAILY aspirin [Adult Low Dose Aspirin] 81 mg tablet,delayed release (DR/EC) 81 mg PO DAILY omega-3 fatty acids [Fish Oil Concentrate] 1,000 mg capsule 1,000 mg PO DAILY metoprolol succinate 50 mg capsule,sprinkle,ER 24hr 50 mg PO BID nitrofurantoin monohyd/m-cryst [Macrobid] 100 mg capsule 100 mg PO BID 5 Days Qty: 10 0RF Rx Instructions: must administer with a meal/food Discharge Orders: Discharge ED (Routine); Ordered 04/02/24 Ordered By: Gallito Castro Discharge Diet: As Directed Discharge Activity: Increase activity as tolerated Patient Instructions: Anemia (ED), Urinary Tract Infection in Older Adults (ED) Activity Restrictions/Additional Instructions: Take cefdinir for your urinary tract infection. Continue drinking plenty of fluids. Please follow-up with your primary doctor early next week for reevaluation of your low hemoglobin and hematocrit, and please return to the emergency department if you develop any new or concerning symptoms. Coding Level of Care Code ED [employer] for [employer]
[2024-04-02] MEDS: sodium chloride 0.9% 1,000 ML 999 ML IV (14:51)
[2024-04-02 14:54] VITALS: BP 142/69; PULSE 54; RESP 16; O2SAT 92
[2024-04-02 15:00] LABS: Basophils % 0.3 %; Eosinophils # 0.3 10^3/uL (0.0-0.8); Eosinophils % 3.4 %; Hematocrit 24.5 % (36-47); Lymphocytes # 1.8 10^3/uL (0.8-4.8); Lymphocytes % 24.4 %; Mean Corpuscular HGB Conc 32.7 g/dL (30-55); Monocytes # 0.8 10^3/uL (0.2-0.9); Monocytes % 9.9 %; Neutrophils # 4.63 10^3/uL (1.8-7.7); Neutrophils % 61.3 %; Nucleated Red Blood Cells % 0 %; Platelet Count 317 10^3/cmm (157-399); Red Blood Count 2.58 10^6/uL (3.85-5.65); Red Cell Distribution Width 13.7 % (12.1-15.1); White Blood Count 7.55 10^3/uL (3.29-11.43)
[2024-04-02 15:01] VITALS: PULSE 59; O2SAT 97
--- NOTE | 2024-04-02 15:04 | CTR_ITS ---
PROCEDURE INFORMATION: Exam: CT Abdomen And Pelvis With Contrast Exam date and time: 04/02/2024 3:48 PM Age: 79 years old Clinical indication: Abnormal findings; Abnormal lab test; Other: Low hgb TECHNIQUE: Imaging protocol: Computed tomography of the abdomen and pelvis with contrast. Radiation optimization: All CT scans at this facility use at least one of these dose optimization techniques: automated exposure control; mA and/or kV adjustment per patient size (includes targeted exams where dose is matched to clinical indication); or iterative reconstruction. Contrast material: OMNI 350; Contrast volume: 100 ml; Contrast route: INTRAVENOUS (IV); COMPARISON: 1. CR XR chest 1V portable [id number] 04/02/2024 3:[address] chest dated 04/28/2020 RADIATION DOSE METRICS: Total DLP (mGy-cm): 462 FINDINGS: Lungs: Mild bibasilar atelectasis/scar. Nonspecific 0.4 cm right lower lobe lung nodule best seen on series 13, image 1 not clearly seen on prior CT chest dated 04/28/2020. Stable peripheral 0.5 cm right lower lobe lung nodule best seen on image 4. Liver: The liver is unremarkable in appearance. Gallbladder and biliary ducts: Contracted gallbladder. Pancreas: Pancreas is unremarkable in appearance. No ductal dilation. Spleen: The spleen is normal in size and contour. Adrenal glands: Nonspecific bilateral adrenal thickening. Kidneys and ureters: Mild right-sided hydronephrosis and moderate hydroureter without radiopaque obstructing stone. Recently passed stone or vesicoureteral reflux cannot be excluded. The left kidney and ureter are unremarkable in appearance. Stomach and bowel: Scattered colonic diverticula. Heavy fecal pattern noted compatible with constipation. Recommend clinical correlation. Appendix: Appendix is not seen, however, there are no secondary signs of appendicitis. Intraperitoneal space: No ascites. Vasculature: Calcified plaque is seen involving the abdominal aorta. Lymph nodes: No abdominal or pelvic lymphadenopathy. Urinary bladder: Bladder unremarkable. Reproductive: Uterus present. Bones/joints: No acute bony abnormality. Soft tissues: Umbilical hernia containing fat. CT/CT abdomen pelvis w con* [id number] IMPRESSION: 1. Mild right-sided hydronephrosis and moderate hydroureter without radiopaque obstructing stone. Recently passed stone or vesicoureteral reflux cannot be excluded. Recommend clinical correlation and follow-up imaging as clinically warranted. 2. Heavy fecal pattern noted compatible with constipation. Recommend clinical correlation. . 3. Nonspecific 0.4 cm right lower lobe lung nodule not clearly seen on prior CT chest dated 04/28/2020. Recommend clinical correlation and follow-up imaging as clinically warranted.
[2024-04-02 15:20] LABS: Troponin(5th) Baseline 8 ng/L (0-10)
[2024-04-02 15:29] LABS: Alanine Aminotransferase 7 U/L (0-33); Albumin Level 3.5 g/dL (3.5-5.2); Alkaline Phosphatase 54 U/L (35-105); Blood Urea Nitrogen 21 mg/dL (8-23); Calcium 8.7 mg/dL (8.5-10.5); Carbon Dioxide 22 mmol/L (22-29); Chloride 97 mmol/L (98-107); Creatinine Clr Calc Pharmacy 40.5527; Glucose 119 mg/dL (65-115); NT Pro B Type Natriuretic Pept 582 pg/mL (0-450); Osmolality Calculated 276 mOsm/kg (285-295); Sodium 131 mmol/L (136-145); Total Bilirubin 0.2 mg/dL (0.15-1.2); Total Protein 6.5 g/dL (6.6-8.7)
[2024-04-02 15:31] LABS: Anion Gap 16.7 (5-19); Aspartate Amino Transferase 21 U/L (0-32); Potassium 4.7 mmol/L (3.5-5.1)
[2024-04-02] MEDS: iohexol 350 mg/mL 500 mL Btl (per mL) IV (15:51)
[2024-04-02 16:14] LABS: Bacteria Urine 4+ /hpf; Hyaline Casts Urine 2.05 /lpf; RBC Urine 0-2 /hpf (0-2); Squamous Epithelial Cell Urine 0-5 /hpf (0-5); WBC Urine >100 /hpf (0-5)
[2024-04-02 16:25] LABS: Add Urine Microscopic? YES; Bilirubin Urine Negative (Negative); Blood Urine Negative (Negative); Glucose Urine UA Negative (Normal); Ketones Urine Negative (Negative); Leukocyte Esterase Urine 3+ (Negative); Nitrate Urine Positive (Negative); Protein Urine Negative (Negative); Specific Gravity, Urine 1.008 (1.005-1.030); Urine Appearance Clear (CLEAR); Urine Color Yellow (Yellow); Urobilinogen Urine 0.2 mg/dL (Negative); pH Urine 6.5 (5-7)
[2024-04-02 16:31] VITALS: BP 149/70; PULSE 54; RESP 16; O2SAT 96
[2024-04-02 16:31] LABS: Add Urine Culture? Yes
[2024-04-02 16:32] VITALS: BP 149/70; BP 153/83; BP 177/69; PULSE 49; PULSE 50; PULSE 54
[2024-04-02] MEDS: cefdinir 300 MG CAPSULE PO (17:12)
[2024-04-02 17:17] VITALS: BP 150/118; PULSE 52; O2SAT 100
== END 2024-04-02 17:19 | disposition home or self-care (01) ==
PROVIDERS: Emergency Provider Physician Assistant
DX: N30.01 Acute cystitis with hematuria (principal); D64.9 Anemia, unspecified; I44.0 Atrioventricular block, first degree; R00.1 Bradycardia, unspecified; Z79.899 Other long term (current) drug therapy
CPT/HCPCS: 70450; 71045; 74177; 80053; 81001; 83880; 84484; 85025; 87077; 87086; 87186; 93005; 96360; 96361; 99285; J7030

== ENCOUNTER → 2024-05-19 16:00 | Outpatient (BNVA) | payer MEDICARE, SELFPAY | PROVIDERS: Visit Provider Internal Medicine Cardiovascular Disease | DX: R42 Dizziness and giddiness (principal); I10 Essential (primary) hypertension; K92.2 Gastrointestinal hemorrhage, unspecified; R21 Rash and other nonspecific skin eruption | CPT/HCPCS: 99204 ==

== ENCOUNTER → 2024-06-17 10:32 | Outpatient (BNVA) | payer MEDICARE, SELFPAY | PROVIDERS: PCP Family Medicine; Visit Provider Nurse Practitioner Family | DX: R06.09 Other forms of dyspnea (principal); D64.9 Anemia, unspecified; I10 Essential (primary) hypertension | CPT/HCPCS: 99214 ==

== ENCOUNTER → 2024-07-21 08:30 | Outpatient (BNVA) | payer MEDICARE, SELFPAY | PROVIDERS: PCP Family Medicine; Visit Provider Nurse Practitioner Family | DX: R60.0 Localized edema (principal); R06.00 Dyspnea, unspecified; R07.89 Other chest pain; I07.1 Rheumatic tricuspid insufficiency; R06.02 Shortness of breath; Z85.3 Personal history of malignant neoplasm of breast; R91.8 Other nonspecific abnormal finding of lung field | CPT/HCPCS: 36415; 80048; 83880; 85025; 99214 ==

== ENCOUNTER 2024-08-17 07:49 | Outpatient (CLI) | payer MEDICARE, SELFPAY ==
[2024-08-17 08:10] VITALS: BMI 24.5
--- NOTE | 2024-08-17 08:13 | ECG_ITS ---
[employer] Test Date: 2024-08-17 Pat Name: Yaneli Hurst Department: Room: Gender: Female Senior Librarian: : 1945 Requested By: Ayesha Asencio Order Number: [id number] Aislinn MD: Rafael Sorensen M.D. Interpretive Statements Lung unchanged pre/post procedure; Intraprocedure shortess of breath; Symptoms resoled by discharge PROCEDURE: At the baseline, the EKG revealed normal sinus rhythm with a poor R wave progression. Possible old septal MA. Some nonspecific ST changes.. The baseline heart was 62 bpm with a blood pressue of 186/50 mm of Hg Lexiscan was infused over a period of 20 seconds. A total of 0.4 milligrams of Lexiscan was infused. The stress phase was continued for a total of 5 minutes. Heart rate at the end of the stress phase was 60 bpm with a blood pressure 160/80 mm of Hg. The EKG at the peak infusion revealed no significant changes. Sestamibi was injected 20 seconds after the Lexiscan infusion. Heart rate at the end of the recovery phase was 69 bpm with a blood pressure of 1 5806 mm of Hg. CONCLUSION: 1. No significant EKG changes with the LexiScan infusion 2. No LexiScan induced chest pain or cardiac arrhythmia 3. Normal blood pressure and heart rate response 4. Sestamibi/sestamibi perfusion scan pending; see separate report. Electronically Signed On 08-24-2024 06:07:59 [employer] by Rafael Sorensen M.D. [email or web address]
--- NOTE | 2024-08-17 08:14 | NMCV_ITS ---
NM scott perf SPECT r/s* [id number] Yaneli Hurst Age: 79 Gender: F : 1945 Exam Date: 08/17/2024 08:59 Ordering Phys: Ayesha Asencio NP Technologist: NOHEMY Garcia Exam Location: [facility] Indications: cp STRESS TEST Please [facility] IMAGE PROTOCOL Rest/Stress 1 Lexiscan Day Radiopharmaceutical Dose (mCi) Administration Site Administered by Rest: Tc-99m 10.9 IV Alessandra Finch, SEAT COVER CUTTER Sestamibi Stress:Tc-99m 32.6 IV Alessandra Stef, SEAT COVER CUTTER Sestamibi Rest: 17-Aug-2024 60 Discovery 630 Stress: 17-Aug-2024 30 Discovery 630 0.4mg Lexiscan. Images obtained in supine and prone position. SPECT RESULTS Technical Quality: Good Raw Data Analysis: Normal Image Corrections: No attenuation or motion correction applied Summed Stress Score: 1 Summed Rest Score: 0 Summed Difference Score: 1 PERFUSION FINDINGS A small area of slightly decreased visibility was noted in the apical lateral region. Some reversibility was noted in this region with the supine imaging. However with the prone imaging, no significant Perfusion abnormalities were noted. FUNCTIONAL RESULTS (calculated via Gated SPECT) Stress Image LV EF (%): 74 Stress EDV (mL):74 TID: 1.18 Stress ESV (mL):19 FUNCTIONAL FINDINGS: Segmental wall motion analysis revealing no gross wall motion abnormalities IMPRESSIONS 1. Myocardial perfusion imaging revealing a small area of reversibility in the apical lateral region. Because of the inconsistency with the supine imaging, most likely this is artifactual. 2. Normal LV ejection fraction of 74%. 3. LV wall motion analysis revealing no gross wall motion abnormalities. 4. Normal LV volume Possibly no significant coronary ischemia, based on the above findings. Clinical correlation is recommended. Dr Rafael Sorensen MD FAC (Electronically Signed) Final Date: 17 August 2024 12:06 S
--- NOTE | 2024-08-17 08:59 | USCV_ITS ---
Yaneli Hurst Age: 79 Gender: F : 1945 Exam Date: 08/17/2024 10:12 Ordering Phys: Ayesha Asencio NP Technologist: Exam Location: [facility] [place] Indication: chest pain BP: 130 / 80 HR: 64 Rhythm: Sinus Technical Quality: Adequate MEASUREMENTS (Male / Female) Normal Values 2D ECHO LV Diastolic Diameter PLAX 4.3 cm 4.2 - 5.9 / 3.9 - 5.3 cm IVS Diastolic Thickness 1.2 cm 0.6 - 1.0 / 0.6 - 0.9 cm IVS Systolic Thickness 1.9 cm LVPW Diastolic Thickness 1.2 cm 0.6 - 1.0 / 0.6 - 0.9 cm LVPW Systolic Thickness 1.7 cm LVOT Diameter 1.6 cm LV Ejection Fraction 2D Teich 59.3 % LV Ejection Fraction MOD 4C 66.5 % LV Ejection Fraction MOD 2C 59.6 % LV Ejection Fraction 2C AL 60.9 % LA Diameter 2.7 cm RA Systolic Volume 4C AL 29.7 ml RA Systolic Volume 4C MOD 27.1 ml Aorta at Sinotubular Diameter 2.6 cm M-MODE LA Ao Ratio MM 1.5 AV Cusp Separation MM 2.0 cm DOPPLER AV Peak Velocity 134.0 cm/s LVOT Peak Velocity 86.0 cm/s AV Area Cont Eq vti 1.5 cm squared AV Area Cont Eq pk 1.3 cm squared MV Peak Velocity 133.0 cm/s MV Area PHT 4.8 cm squared Mitral E to A Ratio 0.7 TV Peak Velocity 275.5 cm/s TR Peak Velocity 283.0 cm/s TR Peak Gradient 32.0 mmHg TV Peak E Velocity 75.0 cm/s PV Peak Velocity 85.0 cm/s FINDINGS Left Ventricle Normal left ventricular size and systolic function, EF 65%. No regional wall motion abnormalities. Right Ventricle The right ventricle is normal in size and function. Right Atrium The right atrium is normal in size. Left Atrium The left atrium is normal in size. Mitral Valve Mild mitral valve regurgitation. Aortic Valve No gross abnormalities noted Tricuspid Valve Trace to mild tricuspid valve regurgitation. Pulmonic Valve Pulmonic valve not well visualized. Pericardium Normal pericardium without effusion. Aorta Normal ascending aorta dimension. IVC The inferior vena cava appears normal. CONCLUSIONS 1. Normal left ventricular size and systolic function, EF 65%. No regional wall motion abnormalities. Trace to mild tricuspid valve regurgitation. Mild mitral valve regurgitation. There is no pericardial effusion. There are no intracardiac masses. Dr Rafael Sorensen MD FACC (Electronically Signed) Final Date: 17 August 2024 22:18 S
[2024-08-17] MEDS: regadenoson 0.4 Mg/5 ml Syringe IVP (09:35)
[2024-08-17 09:45] VITALS: BP 158/60; PULSE 68
== END 2024-08-17 07:50 | disposition home or self-care (01) ==
LOC: CDL 07:49
PROVIDERS: PCP Family Medicine; Visit Provider Nurse Practitioner Family
DX: R07.9 Chest pain, unspecified (principal); I34.0 Nonrheumatic mitral (valve) insufficiency; I07.1 Rheumatic tricuspid insufficiency; R93.1 Abnormal findings on diagnostic imaging of heart and coronary circulation
CPT/HCPCS: 36415; 78452; 93017; 93306; 96374; A9500; J2785

== ENCOUNTER → 2024-09-24 10:05 | Outpatient (BNVA) | payer MEDICARE, SELFPAY | PROVIDERS: PCP Family Medicine; Visit Provider Nurse Practitioner Family | DX: R06.02 Shortness of breath (principal); Z85.3 Personal history of malignant neoplasm of breast; R91.8 Other nonspecific abnormal finding of lung field; R06.00 Dyspnea, unspecified; R07.89 Other chest pain | CPT/HCPCS: 99213 ==

== ENCOUNTER → 2024-11-09 15:27 | Outpatient (BNVA) | payer MEDICARE, SELFPAY | PROVIDERS: PCP Family Medicine; Visit Provider Nurse Practitioner Family | DX: L71.8 Other rosacea (principal); L81.4 Other melanin hyperpigmentation; L57.8 Other skin changes due to chronic exposure to nonionizing radiation; D18.01 Hemangioma of skin and subcutaneous tissue; L82.0 Inflamed seborrheic keratosis; Z78.9 Other specified health status; R20.8 Other disturbances of skin sensation; L29.89 Other pruritus; L53.8 Other specified erythematous conditions; L57.0 Actinic keratosis | CPT/HCPCS: 17000; 17110; 99203 ==

== ENCOUNTER → 2024-11-17 16:06 | Outpatient (BNVA) | payer MEDICARE, SELFPAY | PROVIDERS: PCP Family Medicine; Visit Provider Internal Medicine Cardiovascular Disease | DX: R03.0 Elevated blood-pressure reading, without diagnosis of hypertension (principal); R09.89 Other specified symptoms and signs involving the circulatory and respiratory systems; R42 Dizziness and giddiness; N39.0 Urinary tract infection, site not specified | CPT/HCPCS: 99214 ==

== ENCOUNTER 2025-04-12 14:15 | Outpatient (CLI) | payer MEDICARE, SELFPAY ==
--- NOTE | 2025-04-12 14:18 | XR_ITS ---
WS: [id number] SCREENING DEXA SCAN [facility] CLINICAL INFORMATION: ASYMPTOMATIC MENOPAUSAL STATE COMPARISON: 2022 FINDINGS: The L1-L4 bone mineral density measures 1.221 g/cm2. This corresponds to a T score score of 0.3 and Z score of 2.2. Left femoral neck bone mineral density measures 0.886 g/cm2. This corresponds to a T score of -1.0 and Z score of 1.1. Right femoral neck bone mineral density measures 0.955 g/cm2. This corresponds to a T score -0.4of and Z score of 1.7. Mean femoral neck bone mineral density measures 0.921 g/cm2. This corresponds to a T score of -0.7 and Z score of 1.4. XR/XR DEXA axial skeleton* [id number] IMPRESSION: Normal bone mineralization. Osteopenia LEFT femur. Normal bone mineralization R IGHT femur. Patient's FRAX calculated 10 year probability for major osteoporotic fracture i s 12.7% and osteoporotic hip fracture is 3.0%. Bone density lumbar spine decreased -2.6% Bone density femoral necks decreased -2.8%
== END 2025-04-12 14:16 | disposition home or self-care (01) ==
LOC: RAD 14:16
PROVIDERS: PCP Family Medicine; Visit Provider Physician Assistant
DX: Z13.820 Encounter for screening for osteoporosis (principal); Z78.0 Asymptomatic menopausal state; M85.862 Other specified disorders of bone density and structure, left lower leg
CPT/HCPCS: 77080

== ENCOUNTER 2025-06-04 11:36 | Emergency (ER) | payer MEDICARE, SELFPAY ==
[2025-06-04 11:34] VITALS: BP 183/90; PULSE 71; RESP 18; TEMP 37.1; O2SAT 100; BMI 24.5
--- OUTSIDE RECORDS SUMMARY | 2025-06-04 11:40 | XMS_ITS | Continuity of Care Document ---
Author Organization JEAN - Solomon Berman [facility] Evie, Matty, [facility] ([facility]) Address [address] [place] [address] Care Team Providers Care Center Medical Director Name Role Phone GOMEZ MARK Primary Care Provider Unavailabl e Assessment No assessment recorded. Plan of Treatment Reminders Order Date Submit Date Provider Last Modified By Organization Details Last Modified Time Details Appointments OFFICE VISIT ELSY 2025 10:45A M Gomez Mark MD Not available Not available Not available Lab None recorded . Referral None recorded . Procedures None recorded . Surgeries None recorded . Imaging [facility]A 2024 025 [facility] [address] [place], [address], 04/13/2025 10:23:47 Medication Orders None recorded . Patient TargetsNo targets recorded. Patient Instructions Encounter Date Encounter Id Patient Instructions Last Modified By Organization Details Last Modified Time 04/01/2025 [id number] advance directiv e education [email or web address] Not available 04/01/2025 12:36:32 Reason for Referral None Reported. Results Created Date Observation Date Name Description Value Unit Range Abnormal Flag Note LastModifiedBy Organization Detail LastModifiedTime 03/25/2003/25/2025 CBC WBC 6.8 x10 4.0-10 .5 Not Available [facility] [address] [facility] [address], [place], [address], 03/25/2025 13:44:22 03/25/2003/25/2025 CBC RBC 4.40 x10 3.50-5 .50 Not Available [facility] [address], [place], [address], 03/25/2025 13:44:22 03/25/2003/25/2025 CBC HGB 13.3 g/dL 12.0-1 6.0 Not Available [facility] [address] [facility] 1, [place], [address], 03/25/2025 13:44:22 03/25/2003/25/2025 CBC HCT 41.0 % 37.0-4 7.0 Not Available [facility] [address] [facility] 1, [place], [address], 03/25/2025 13:44:22 03/25/2003/25/2025 CBC MCV 93.1 fL 80.0-9 9.9 Not Available [facility] [address] [facility] 1, [place], [address], 03/25/2025 13:44:22 03/25/20 25 03/25/2025 CBC MCH 30.2 pg 27.0-3 2.0 Not Available [facility] [address] [facility] 1, [place], [address], 03/25/2025 13:44:22 03/25/2003/25/2025 CBC MCHC 32.4 g/dL 32.0-3 6.0 Not Available [facility] [address] [facility] 1, [place], [address], 03/25/2025 13:44:22 03/25/2003/25/2025 CBC RDW 13.1 % 11.5-1 4.5 Not Available [facility] [address] [facility] 1, [place], [address], 03/25/2025 13:44:22 03/25/2003/25/2025 CBC plt 360.1 x10 140.0- 451.0 Not Available [facility] [address] [facility] 1, [place], [address], 03/25/2025 13:44:22 03/25/20 25 03/25/2025 CBC lymphocytes % 23.0 % 20.0-5 0.0 Not Available [facility] [address] [address], [place], [address], 03/25/2025 13:44:22 03/25/20 25 03/25/2025 CBC granulcytes % 62.6 % 30.0-7 0.0 Not Available [facility] [address] [facility], [place], [address], 03/25/2025 13:44:22 03/25/2003/25/2025 CBC monocytes % 11.1 % 2.0-16 .0 Not Available [facility] [address] [address], [place], [address], 03/25/2025 13:44:22 03/25/20 25 03/25/2025 CBC granulcytes# 4.2 x10 Not Karoline ilable [facility] [address] [facility] 1, [place], [address], 03/25/2025 13:44:22 03/25/2003/25/2025 CBC lymphocytes # 1.6 x10 Not Available [facility] [address] [address], [place], [address], 03/25/2025 13:44:22 03/25/20 25 03/25/2025 CBC monocytes # 0.8 x10 Not Avai lable [facility] [address] [facility] 1, [place], [address], 03/25/2025 13:44:22 03/25/2003/25/2025 CMP (FEMA LE) glucose 104.0 mg/dL 60.0-9 9.0 high Not Available [facility] [address] [facility], [place], [address], 03/25/2025 14:38:33 03/25/20 25 03/25/2025 CMP (FEMA LE) BUN (blood urea nitrogen) 20.0 mg/dL 10.0-2 6.0 Not Available [facility] [address] [facility], [place], [address], 03/25/2025 14:38:33 03/25/20 25 03/25/2025 CMP (FEMA LE) creatinine (serum) 1.0 mg/dL 0.4-1. 5 Not Available [facility] [address] [address], [place], [address], 03/25/2025 14:38:33 03/25/20 25 03/25/2025 CMP (FEMA LE) BUN/creatini ne ratio 20.00 ratio Not Available [facility] [address] [address], [place], [address], 03/25/2025 14:38:33 03/25/20 25 03/25/2025 CMP (FEMA LE) eGFR calculated 56.4 Not Available [facility] [address] [address], [place], [address], 03/25/2025 14:38:33 03/25/20 25 03/25/2025 CMP (FEMA LE) total protein 8.3 g/dL 6.0-8. 5 Not Available [facility] [address] [facility] [address] [address], [place], [address], 03/25/2025 14:38:33 03/25/20 25 03/25/2025 CMP (FEMA LE) total bilirubin 0.5 mg/dL 0.2-1. 3 Not Available [facility] [address] [facility], [place], [address], 03/25/2025 14:38:33 03/25/20 25 03/25/2025 CMP (FEMA LE) albumin 4.6 g/dL 3.5-5. 5 Not Available [facility] [address] [facility], [place], [address], 03/25/2025 14:38:33 03/25/20 25 03/25/2025 CMP (FEMA LE) globulin 3.7 calc Not Available [facility] [address] [facility], [place], [address], 03/25/2025 14:38:33 03/25/20 25 03/25/2025 CMP (FEMA LE) AST (SGOT) 24.0 U/L 0.0-46 .0 Not Available [facility] [address] [facility] 1, [place], [address], 03/25/2025 14:38:33 03/25/20 25 03/25/2025 CMP (FEMA LE) altv (SGPT) 11.0 U/L 13.0-6 9.0 abnormal Not Available [facility] [address] [facility], [place], [address], 03/25/2025 14:38:33 03/25/20 25 03/25/2025 CMP (FEMA LE) A/G ratio 1.2 ratio Not Available [facility] [address] [facility] 1, [place], [address], 03/25/2025 14:38:33 03/25/20 25 03/25/2025 CMP (FEMA LE) ALP phos 70.0 U/L 30.0-1 40.0 normal Not Available [facility] [address], [place], [address], 03/25/2025 14:38:33 03/25/20 25 03/25/2025 CMP (FEMA LE) calcium 9.5 mg/dL 8.4-10 .5 Not Available [facility] [address], [place], [address], 03/25/2025 14:38:33 03/25/20 25 03/25/2025 CMP (FEMA LE) sodium 135.0 mmol/ L 136.0- 145.0 low Not Available [facility] [address] [facility] 1, [place], [address], 03/25/2025 14:38:33 03/25/20 25 03/25/2025 CMP (FEMA LE) potassium 4.4 mmol/ L 3.5-5. 1 Not Available [facility] [address] [facility] 1, [place], [address], 03/25/2025 14:38:33 03/25/20 25 03/25/2025 CMP (FEMA LE) chloride 100.0 mmol/ L 98.0-1 10.0 normal Not Available [facility] [address] [facility] [address], [place], [address], 03/25/2025 14:38:33 03/25/20 25 03/25/2025 CMP (FEMA LE) C02 24.0 mmol/ L 22.0-3 1.0 Not Available [facility] [address] [facility], [place], [address], 03/25/2025 14:38:33 03/25/20 25 03/25/2025 CMP (FEMA LE) anion gap 11.0 calc Not Available [facility] [address] [facility] 1, [place], [address], 03/25/2025 14:38:33 03/25/20 25 03/25/2025 CMP (FEMA LE) osmolality 281.9 calc Not Available [facility] [address], [address], 03/25/2025 14:38:33 03/25/20 25 03/26/2025 JIM TIN ferritin 77 NG/mL 16-288 normal Not Available [facility] [address] [place], [address], 03/26/2025 05:32:56 03/30/20 25 03/30/2025 ESR (eryt hrocy te sedim entat ion rate) , blood ESR 40 Not Available [facility]) [address] [place], [address], 03/25/2025 15:43:37 03/25/20 25 12/15/2024 MAMMO , scree jose, digit al, bilat eral No observ ation record ed. [email or web address] [facility] Medical Records Dept [address] [place], [address], 04/08/2025 16:39:14 04/12/20 25 04/12/2025 DEXA No observ ation record ed. [facility] [address] [place], [address], 04/14/2025 17:38:26 04/23/20 25 12/15/2024 MAMMO , scree jose, digit al, bilat eral No observ ation record ed. [email or web address] [facility] Medical Records Dept [address] [place], [address], 04/26/2025 15:30:08 Result Notes None recorded. Problems Name Problem SNOMED Code Status Onset Date Resolution Date Notes Provider Name and Address Organization Details Recorded Time Malignan t neoplasm of breast 694863121 Active hx of JEAN Warren - [facility], LDaniel 06/26/202 5 07:40:42 Tonsille ctomy Completed 201502/29/2016 Tonsille ctomy - Status is Inactive ; 02/29/20 16 12:19PM by Terri Cristobal CMT, Annotati on/Destin cailx; Promoted ; acuity set as *; Not Available [facility] 3 03:10:49 Seasonal allergic rhinitis 930792957 Active 2022 ELZA MAHAD null, [facility] 3 14:26:34 Malignan t neoplasm of breast 243499124 Completed 202209/23/2024 MARY GEORGE null, [facility] 5 07:40:42 Mixed anxiety and depressi ve disorder 205857979 Active 2023 KATHY CAICEDO null, [facility] 4 08:31:31 Hyperten sive disorder 16346999 Active 2023 KATHY CAICEDO null, [facility] 4 08:31:44 Carcinom a of breast 720610407 Completed 202309/23/2024 Jaja Cruz null, [facility] 5 12:26:28 Cardiome brian 5044873 Active 2023 KATHY CAICEDO null, [facility] 4 08:25:05 Hyperlip idemia 22920684 Active 2023 KATHY CAICEDO null, [facility] 4 08:25:13 Hyponatr emia 42663854 Active 2023 Jaja Cruz null, [facility] 5 12:27:37 Irritabl e bowel syndrome 53267124 Active 2023 KATHY CAICEDO null, [facility] 4 08:25:29 Stasis dermatit is 23966101 Completed 202309/23/2024 Jajaoctavio Cruz null, [facility] 5 12:23:34 Localize d osteoart hrosis 87487056 Active 2023 KATHY CAICEDO null, [facility] 4 08:26:45 Nodule of lung 683896011 Active 2023 right Jajaoctavio Cruz null, [facility] 5 12:27:37 Anemia due to blood loss 681555759 Completed 202309/23/2024 Jaja Cruz null, [facility] 5 12:23:34 Divertic ulosis of colon 435716679 Active 2023 Jaja Cruz [facility], [facility] 5 12:27:37 Iron deficien cy anemia 27536873 Active 2023 Jaja Cruz null, [facility] 5 12:27:37 Mild mitral valve regurgit ation 540451385 Active 2024 MARY arshad, [facility] 5 07:36:42 Mild tricuspi d valve regurgit ation 735296862 Active 2024 MARY GEORGE [facility], [facility] 5 07:36:42 Recurren t major depressi ve episodes , mild 099949418 Active 2024 MARY GEORGE [facility], [facility] 5 07:43:09 Chronic urinary tract infectio n 109223312 Active 2024 MARY GEORGE null, [facility] 5 11:30:04 Problem Notes None recorded. Procedures Surgical History Date Name Laterality Status Provider Name and Address Organization Details Recorded Time 2024 bone density scan [facility] 5 17:37:47 2024 Most Recent Mammogram completed MARY GEORGE [facility] 5 15:29:48 2024 mammography completed MARY [facility] 5 11:41:58 2023 esophagogastroduodenoscopy completed SEBASTIAN DAVID [facility] 4 12:03:20 2023 colonoscopy completed Jaja Cruz [facility] 5 12:21:39 2013 exercise stress test - endocrine completed KATHY CAICEDO [facility] 4 08:30:20 2011 Date of Last Pap Smear completed JERALD MELARA [facility] 3 11:52:51 lumpectomy of breast completed KATHY CAICEDO [facility] 3 16:48:22 Imaging Results None recorded. Procedure Notes None recorded. Medical Equipment None Reported. Allergies Allergen ID Allergen Name Allergen Category Reaction Reaction Severity Criticality Documentation Date Start Date Code Code System Note Provider Name and Address Organization Details Recorded Time 99571 losartan potassium medicatio n cough moderate low 02/02/2023 24833 0 RxNorm Rosinakiana arshad [facility] 4 15:25:28 Medications Name Sig Start Date Stop Date Status Note LastModified by Organization Details LastModified Time promethaz ine-DM 6.25 mg-15 mg/5 mL oral syrup TAKE 5ML BY MOUTH EVERY 4 HOURS NEEDED FOR COUGH 10/02 completed Not Available Not Available Not Available venlafaxi ne ER 37.5 mg capsule,e xtended release 24 hr TAKE 1 CAPSULE TWICE DAILY 2024 active Not Available Not Available Not Avai lable venlafaxi ne ER 75 mg capsule,e xtended release 24 hr TAKE 1 CAPSULE EVERY DAY 02/09 completed Not Available Not Available Not Available doxycycli ne hyclate 100 mg capsule Take 1 capsule twice a day by oral route for 7 days. 06/18 completed Not Available Not Available Not Available metoprolo l succinate ER 50 mg tablet,ex tended release 24 hr TAKE 1 TABLET TWICE DAILY 09/23 completed Not Available Not Available Not Available valacyclo vir 1 gram tablet TAKE 1 TABLET BY MOUTH EVERY 8 HOURS FOR 7 DAYS 02/05 completed Not Available Not Available Not Available prednison e 20 mg tablet TAKE 2 TABS BY MOUTH X 3 DAYS, THEN 1 TABLET BY MOUTH DAILY X 4 DAYS 10/02 completed Not Available Not Available Not Available prednison e 5 mg tablet TAKE 4 TABLETS BY MOUTH IN THE MORNING FOR 3 DAYS THEN 3 IN THE MORNING FOR 3 DAYS THEN 2 IN THE MORNING FOR 3 DAYS THEN 1 ONCE DAILY FOR 3 DAYS 06/02 completed Not Available Not Available Not Available amlodipin e 2.5 mg tablet Take 1 tablet every day by oral route for 90 days. 05/26 completed Not Available Not Available Not Available Zyrtec 10 mg tablet Take 1 tablet every day by oral route. 05/26 completed Not Available Not Available Not Available amlodipin e 5 mg tablet TAKE 1 TABLET BY MOUTH ONCE DAILY active taking bid Not Available Not Available Not Available ciproflox acin 500 mg tablet Take 1 tablet every 12 hours by oral route with meal(s) for 5 days. 12/31 completed Not Available Not Available Not Available betametha sone acetate and sodium phos 6 mg/mL suspensio n for injection Take 6 mg by injectio n route. 05/17 completed Not Available Not Available Not Available Vitamin C 1,000 mg tablet Take 1 tablet every day by oral route. 09/23 completed Not Available Not Available Not Available pantopraz ole 40 mg tablet,de layed release Take 1 tablet every day by oral route for 90 days. 10/01 completed Not Available Not Available Not Available metoprolo l succinate ER 25 mg tablet,ex tended release 24 hr TAKE 1/2 (ONE-SURYA F) TABLET BY MOUTH ONCE DAILY active Not Available Not Available No t Available estradiol 0.01% (0.1 mg/gram) vaginal cream APPLY 0.5 GRAMS VAGINALL Y TWICE WEEKLY NEEDED FOR VAGINAL DRYNESS active Not Available Not Available No t Available albuterol sulfate HFA 90 mcg/actua tion aerosol inhaler INHALE 2 PUFFS BY MOUTH EVERY 4 HOURS NEEDED FOR COUGH 11/14 completed Not Available Not Available Not Available cefdinir 300 mg capsule TAKE 1 CAPSULE BY MOUTH TWICE DAILY FOR 10 DAYS 04/13 completed Not Available Not Available Not Available metronida zole 0.75 % topical gel APPLY TO THE AFFECTED AREA TWICE DAILY active Not Available Not Available No t Available amoxicill in 875 mg-potass ium clavulana te 125 mg tablet 10/02 completed Not Available Not Available Not Available Bactrim DS 800 mg-160 mg tablet Take 1 tablet every 12 hours by oral route for 3 days. 12/07 completed Not Available Not Available Not Available glucosami ne-chondr oitin 750 mg-600 mg tablet daily active Not Available Not Available Not Available nitrofura ntoin monohydra te/macroc rystals 100 mg capsule Take 1 capsule every 12 hours by oral route for 5 days. 11/27 completed Not Available Not Available Not Available magnesium 04/13 completed Not Available Not Available Not Available calcium 02/04 completed Not Available Not Available Not Available zinc 04/22 completed Not Available Not Available Not Available Aspirin EC 02/04 completed Recorded 07/26/19 09 11:28AM by Nati David RN, Office Visit; Not Available Not Available Not Available iron 1 daily 05/26 completed Not Available Not Available Not Available venlafaxi ne daily 02/04 completed 98973; Recorded 08/09/19 23 8:08AM by Kathy Caicedo LPN (Authori giana through Zina Bradshaw MD), Refill Request; Mail Order Quantity : 90 Capsule; Mail Order Days: 90 Days; Refill Quantity : 30; Capsule; Not Available Not Available Not Available metoprolo l succinate two times daily 03/01 completed 09531; Recorded 08/09/19 23 8:09AM by Kathy Caicedo LPN (Authori giana through Zina Bradshaw MD), Refill Request; Mail Order Quantity : 90 Tablet; Mail Order Days: 90 Days; Refill Quantity : 0; Not Available Not Available Not Available Multivita mins daily 09/23 completed Not Available Not Available Not Available Baby Aspirin 04/13 completed Not Available Not Available Not Available Calcium 500 + D daily active Not Available Not Available Not Available diphenhyd ramine (bulk) 1 Q4 hours prn 05/26 completed Not Available Not Available Not Available ferrous gluconate 324 mg (38 mg iron) tablet TAKE 1 TABLET EVERY DAY WITH A MEAL 09/23 completed Not Available Not Available Not Available Glucosami ne Chondroit Complx Advan 750 mg-100 mg-125 mg-1.65 mg tablet Take by oral route. 02/04 completed Not Available Not Available Not Available Vitals Date Recorded Body height Body mass index (BMI) Body weight Oxygen saturation Heart rate Respiratory rate Body temperature Systolic And Diastolic Provider Name and Address Organization Details Last Updated DateTime 161.29 cm 25.3 kg/m2 69017.8 9 g 97 % 66 /min 18 /min 97 [degF] 126/72 mm[Hg] MARY JESUS [facility] 11:28:22 Social History Question Answer Notes LastModified by immatics biotechnologiesat ion Details LastModified Time Tobacco Smoking Status Never Smoker JERALDDipti arshad [facility] 10/15/2022 11:53:28 What Was The Date Of Your Most Recent Tobacco Screening? 03/25/2025 [email or web address] Information not available 03/25/2025 Sex: Unknown Functional Status Question Answer Note LastModified by Organizat ion Details LastModified Time Do you use any illicit or recreational drugs? No [email or web address] Information not available 10/15/2022 Do you or have you ever used any other forms of tobacco or nicotine? No [email or web address] Information not available 06/02/2024 What is your level of alcohol consumption? None [email or web address] Information not available 10/15/2022 Do you or have you ever used any nicotine-free cigarettes, vape, or chewing tobacco? No [email or web address] Information not available 06/02/2024 Mental Status None recorded. Family History Relationship Description Onset Age of this Age Resolved Age Notes LastModified by Organization Details LastModified Time Mother Hypertensive disorder Heart block [email or web address] Not available 08/21/2023 08:28:12 Father Myocardial infarction HTN [email or web address] Not available 08:28:24 Medical History Condition Response Coronary Artery Disease N Other N Gout N Kidney Stones N Blood Diseases N Hyperthyroidism N Breast Cancer N Blood Transfusion N Depression N COPD N Lung Disease N Hypothyroidism N Developmental or Behavioral Disorders N Defects or Inherited Disease N Breast Problem N Difficulty Swallowing N Anesthesia Complications N Meniere's disease N Anxiety Disorder N Muscle, Joint, or Bone Problems N Vision or Eye Problems N Arthritis N Polyps N Infertility N Cancer N Varicosities N Stroke N Endometriosis N Bladder or Kidney Problems N High Cholesterol N Liver Disease N Headaches N Fibromyalgia N Kidney Disease N Allergies/Hayfever N Heart Problems N Ear or Hearing Problems N Hospitalizations N Thyroid Problems N GI Problems N ADD/ADHD N Skin Problems N Eating Disorder N Anemia N Constipation N Mental Illness N Ovarian Cancer N Diabetes N Bedwetting N Seizures/Epilepsy N Tuberculosis N Eczema N Diverticulitis N Abuse/Domestic Violence N Asthma N Reflux/GERD N Hepatitis N Heart Disease N Pulmonary Embolism N Pre-Eclampsia N Hypertension Y Chronic Ear Infections N Osteoporosis N Chicken Pox N Autism Spectrum Disorder (ASD) N Thrombophilias N Gynecological History Statement/Question Response Abnormal Pap N Date of Last Pap Smear 07/08/2011 Most Recent Mammogram 12/15/2024 Obstetrics History GPAL:G 4 P 3 0 1 2 Type Value Full Term 3 Spontaneous 1 Living 2 Total 4 Immunizations Vaccine Type Date Status Note Provider Nam e and Address Organization Details Recorded Time Influenza, split virus, trivalent, preservative 0 completed Not Available [facility] 02/02/2023 02:44:17 pneumococcal polysaccharide PPV23 0 completed Not Available [facility] 02/02/2023 02:44:17 Influenza, split virus, trivalent, preservative 3 completed Not Available [facility] 02/02/2023 02:44:17 Influenza, split virus, trivalent, preservative 5 [facility]/07[facility]24 15:25:12 Influenza, split virus, trivalent, preservative 4 completed Not Available [facility] 02/02/2023 02:44:18 Influenza, split virus, trivalent, preservative 9 [facility] 02/07/2024 15:25:12 zoster live 9 completed Not Available [facility] 02/02/2023 02:44:18 Influenza, split virus, trivalent, preservative 2 completed Not Available [facility] 02/02/2023 02:44:18 Influenza, split virus, trivalent, preservative 8 completed Not Available [facility] 02/02/2023 02:44:18 Influenza, split virus, trivalent, preservative 6 [facility] 02/07/2024 15:25:12 Pneumococcal conjugate PCV 13 6 completed Rosina arshad, [facility] 02/07/2024 15:25:12 Influenza, split virus, trivalent, preservative 7 completed Rosina arshad [facility] 02/07/2024 15:25:12 Influenza, split virus, trivalent, preservative 7 completed Rosina arshad [facility] 02/07/2024 15:25:12 Td(adult) unspecified formulation 3 completed Not Available [facility] 02/02/2023 02:44:19 Pneumococcal conjugate PCV20, polysaccharide QUY381 conjugate, adjuvant, PF 5 completed [facility] 03/25/2025 12:32:45 zoster recombinant 3 completed Rosina Freed [facility] 02/07/2024 15:25:12 zoster recombinant 2 completed Rosina Freed [facility] 02/07/2024 15:25:12 Influenza, high-dose, quadrivalent, PF 1 [facility] 02/07/2024 15:25:12 Influenza, high-dose, quadrivalent, PF 2 completed Rosina Freed [facility] 02/07/2024 15:25:12 COVID-19, mRNA, LNP-S, PF, 30 mcg/0.3 mL dose 1 completed [facility] 02/07/2024 15:25:12 COVID-19, mRNA, LNP-S, PF, 30 mcg/0.3 mL dose 1 completed [facility] 02/07/2024 15:25:12 COVID-19, mRNA, LNP-S, PF, 30 mcg/0.3 mL dose 1 [facility] 02/07/2024 15:25:12 Influenza, high-dose, trivalent, PF 9 [facility] 15:25:12 Influenza, high-dose, trivalent, PF 6 completed Rosina Pliler null, [facility] 02/07/2024 15:25:12 Influenza, high-dose, trivalent, PF 7 completed Rosina Freed null, [facility] 02/07/2024 15:25:12 Novel [id number] 9 completed Rosina Freed null, [facility] 02/07/2024 15:25:12 Influenza, split virus, quadrivalent, PF 5 completed Rosina Freed null, [facility] 02/07/2024 15:25:12 influenza, unspecified formulation 3 completed MARY arshad, [facility] 03/10/2024 16:35:58 Influenza, split virus, trivalent, PF 4 completed GORDO MARK PA-C [address] [place], [address], [facility] 03/23/2024 11:18:03 Past Encounters Encounter ID Performer Location Encounter Start Date Encounter Closed Date Diagnosis/Indication Diagnosis SNOMED-CT Code Diagnosis ICD10 Code Diagnosis IMO Codes Diagnosis Note [id number] Gomez Mark MD [facility] ([facility] [address] [place] [address] 03/25/2025 11:38:53 03/26/2025 10:50:11 Recurrent major depressive episodes, mild 184619997 F33.0 85600 Hypertensive disorder 38 404002 I10 Mild natalie l valve regurgitation 897357422 I34.0 Iron defic iency anemia 43827476 D50.9 previous endoscopy after dx has been trending positively . willl recheck Malignant neoplasm of breast 586950693 C50.919 she follows with oncology at [facility] she reports shehad her mammogram in november. will have her sign for results Screening mammography 24 930746 Z12.31 [id number] s/p lumpectomy and hormone blocking therapy Requires vaccination 723 [id number] Z23 [id number] GORDO MARK PA-C [facility] ([facility]) [address] [place] [address] 04/01/2025 11:11:53 04/01/2025 12:43:05 Physical examination 0642281 Z00.00 [id number] handout of advanced directives given and explained. Postmenopausal state 764 61391 Z78.0 060295 hx of taking estrogen shabana. Hypertensive disorder 38 286664 I10 stable. compliant with meds. Health Concerns Section Related Observation LastModified by Organization Detai ls LastModified Time None Recorded Concern Status LastModified by Organization Details LastModified Time None Recorded Payers Encounter Date Sequence Insurance Name Policy Number Policy Cho Covered Member ID Cho Member ID Guarantor Name 04/01/2025 1 [employer] (MEDICARE REPLACEMENT/ ADVANTAGE - PPO) Yaneli Hurst [id number] Yaneli Hurst Notes Date Note Type Note Provider Name and Address Organization Details Recorded Time 5 text/html Medicare Annual Wellness VisitReported by PatientSocial/Behavioral HistoryFor diet and nutrition, patient reportshealthy diet,discussed vitamin and supplement use,discussed portion control,discussed maintaining calcium balance, anddiscussed diet improvement. For fracture risk, patient reportsno history of fractures,no recent explained fracture,no sudden unexplained fractures, andno previous musculoskeletal injuries. For physical activity, patient reportsexercises on a regular basis,discussed weightbearing activities, anddiscussed exercise habits.Mental Status:For depression risk, patient reportshistory of mood disordersandhistory of depressionbut reportsnever feels sad, empty, or tearful,no loss of interest in activities,no significant changes in weight,no sleep disturbances or insomnia,no agitation,no loss of energy,no feelings of worthlessness or guilt, andno thoughts of suicide. For orientation, patient reportsno disorientation to time,no disorientation to date, andno disorientation to place. For concentration and memory, patient reportsno decreased concentrating ability,no memory lapses or loss, anddoes not forget words. For speech/motor difficulties, patient reportsno speech difficulties,no difficulty expressing formulated concepts,no difficulty with fine manipulative tasks,no difficulty writing/copying,no slowed reaction time, anddoes not knock things over when trying to pick them up.Functional AbilityFor vision, patient reportsworse both distance and near(wears glasses). For hearing, patient reportsno loss of hearing. For activities of daily living, patient reportsable to bathe with limited or no assistance,able to contol urination and bowels,able to dress with limited or no assistance,able to feed self with limited or no assistance,able to get out of chair or bed with limited or no assistance,able to groom with limited or no assistance, andable to toilet with limited or no assistance. For instrumental activities of daily living, patient reportsable to do house work with limited or no assistance,able to grocery shop with limited or no assistance,able to manage medications with limited or no assistance,able to manage money with limited or no assistance,able to prepare meals with limited or no assistance, andable to use the phone with limited or no assistance. For falls risk assessment, patient reportsno frequent falls while walking,no dizziness/vertigo,fall(s ) in the past year 0, andfall(s) since last visit0. For home safety, patient reportsno unsafe amita hazzards,no unsafe stairs,working smoke/co detectors,use of seatbelts,has hand bars in the bathroom/shower,good lighting in the home,reviewed sun protection, andnumber of motor vehicle accidents 0. hx of breast ca 15 yrs ago. left breast with lumpectomy with estrogen shabana. GORDO MARK PA-C [address] [place] [address], [address], [facility], LDaniel 04/01/2025 12:37:07 OBGyn Episode No OBEpisode recorded.
--- OUTSIDE RECORDS SUMMARY | 2025-06-04 11:40 | XMS_ITS | Clinical Summary ---
Author Organization [facility] Address [address] [place] [address] Phone Care Team Providers Care Sharepoint Consultant Name Role Phone Zina Bradshaw MD Primary Care Provider Allergies Active Allergy Reactions Criticality Noted Date Comments Losartan Cough Medium 10/31/2022 Medications venlafaxine (EFFEXOR XR) 37.5 mg Extended Release 24 hour capsule Take 1 Capsule (37.5 mg) by mouth daily. 90 Capsule 2 0 Active acetaminophen (TYLENOL) 500 mg tablet Take 1,000 mg by mouth every 6 hours as needed. Active metoprolol succinate (TOPROL XL) 25 mg Extended Release 24 hour tablet Take 50 mg by mouth daily at bedtime . 6 Active Glucosamine Sulfate 1,000 mg Capsule Take by mouth daily . 6 Active acetaminophen (TYLENOL) 500 mg tablet Take 1,000 mg by mouth every 6 hours as needed. 6 Active amLODIPine (NORVASC) 2.5 mg tablet Take 5 mg by mouth daily. 2 times daily Active OTHER Eye meds 1 tablet 1 time a day Active estradioL (Estrace) 0.01% (0.1 mg/g) vaginal creamIndication s:dyspareunia 0.5 gm vaginally twice weekly as needed for vaginal dryness. 42.5 Gram 5 5 Active calcium as CARBONATE-vitam in D3 (CALCIUM 500+D) 500 mg-10 mcg (400 unit) tablet daily. Active metroNIDAZOLE (METROGEL) 0.75 % Gel APPLY TO THE AFFECTED AREA TWICE DAILY Active glucosamine/cho ndr bardales A sod (Glucosamine-Ch ondroitin) 750-600 mg Tablet daily. 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 08/01/2015 Encounters Date Type Department Care Team Description 05/25/2025 External Device Data STL ABSTRACTION Provider, Abstract 03/18/2025 11:00 AM CDT Office Visit [facility] [address] [address] Osorio Garduno MD Female cystocele (Primary Dx) from Last 3 Months Immunizations Immunization Administration Dates Next Due (Veristorm)(12 YR UP) COVID-19 VACCINE - EMERGENCY USE AUTHORIZATION, MRNA, [id number](PF) 30 MCG/0.3 ML IM SUSP 05/12/2021,09/02/2020,08/05/2020 (PREVNAR 13)(6 WKS UP) PNEUM OCOCCAL CONJUGATE (PCV13) 0.5 ML, IM 04/25/2016 INFLUENZA VACCINE HIGH DOSE QUADRIVALENT 65 YR UP PF IM 04/11/2021 Influenza Seasonal Unspecifi ed Formulation IM 04/01/2015 Family History Medical History Relation Name Comments Unknown Father Cancer Mother Breast Cancer Neg Hx negative respo nse- see media tab Cancer - Other Neg Hx Melanoma Neg Hx Ovarian Cancer Neg Hx Pancreatic Cancer Neg Hx Uterine or Endometrial Cance r, Not Including Cervical Neg Hx Relation Name Status Comments Father Mother Social History Tobacco Use Types Packs/Day Years Used Date Smoking Tobacco: Never Smokeless Tobacco: Never Tobacco Cessation:Counseling Given: Yes Alcohol Use Standard Drinks/Week Comments Yes 0 (1 standard drink = 0.6 oz pur e alcohol) Comments No Sex and Gender Information Value Date Recorded Sex Assigned at Not on file Legal 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 Gender Identity Not on file Sexual Orientation Not on file Last Filed Vital Signs Vital Sign Reading Time Taken Comments Blood Pressure 120/80 03/18/2025 11:08 AM CDT Pulse 45 12/03/2024 10:07 AM CDT Temperature 36.3 C (97.3 F) 12/03/2024 9:59 AM CDT Respiratory Rate 16 08/24/2015 10:36 AM CONCERT MANAGER Oxygen Saturation 98% 12/03/2024 9:59 AM CDT Inhaled Oxygen Concentration - - Weight 66.2 kg (146 lb) 03/18/2025 11:08 AM CDT Height 162.6 cm (5' 4 ) 03/18/2025 11:08 AM CDT Body Mass Index 25.06 03/18/2025 11:08 AM CDT Plan of Treatment Upcoming Encounters Date Type Department Care Team (Late st Contact Info) Description 11/30/2025 10:05 AM CDT Appointment [facility] [address] [address] Louisa Nobles MD [address] [address] 12/07/2025 10:00 AM CDT Office Visit [facility] [place] [address] [address] Louisa Nobles MD [address] [address] Ariana Comer FNP [address] [address] Health Maintenance Due Date Last Done Comments PNEUMOCOCCAL VACCINE 50+ YEA RS (2 of 2 - PCV20 or PCV21) 04/25/2017 04/25/2016, RSV VACCINE (60+ or ) (1 - 1-dose 75+ series) 2018 DTAP/TDAP/TD VACCINES (1 - Tdap) 07/26/2022 07/25/19 23 INFLUENZA VACCINE (#1) 2025 4, 04/23/2022, 04/11/2021, Additional history exists COVID-19 Vaccine (4 - 2024-2 6 season) 2025 05/12/2021, 09/02/2020, 08/05/2020 OSTEOPOROSIS SCREENING 12/28/2027 3, 03/23/2020, 03/23/2020, Additional history exists ZOSTER VACCINE Completed 07/27/2022, 11/2021, 07/26/2008 COLORECTAL SCREENING Discontinued 05/13/2024 Colorectal Cancer Screening Discontinued FIT-DNA Q 3 years Discontinued FIT/FOBT Q 1 year Discontinued Flex Sig/CT Colonography Q 5 years Discontinued Procedures Procedure Name Priority Date/Time Associated Diagnosis Comments XR DEXA BONE DENSITY AXIAL 1 OR MORE SITES Routine 12/27/2022 10:39 AM CDT from Last 3 Months or Most Recently Relevant to Health Maintenance Results * XR DEXA BONE DENSITY AXIAL 1 OR MORE SITES (12/27/2022 10:39 AM CDT) Anatomical Region Laterality Modality Other us Abstract Provider DIAGNOSTIC IMAGING ORDERABLES Final Result from Last 3 Months or Most Recently Relevant to Health Maintenance [place] [address] [address] [place] [address] Care Teams Sharepoint Consultant Relationship Specialty Start Date End Date Zina Bradshaw MD [address] [place] [address] PCP - General 12/14/20
--- OUTSIDE RECORDS SUMMARY | 2025-06-04 11:40 | XMS_ITS | Data Portability ---
Author Organization JEAN [facility], [facility], [facility] Address [address] [address] Care Team Providers Care Clinical Social Work Therapist Name Role Phone GOMEZ MARK Primary Care Provider Unavailabl e Assessment Encounter Date Assessment Date Assessment LastModified by Organization Details LastModified Time 03/25/2025 03/25/2025 she did quit her iron and started an mvi with iron. [email or web address] Not available 03/25/2025 12:17:25 Plan of Treatment Reminders Order Date Submit Date Provider Last Modified By Organization Details Last Modified Time Details Appointments OFFICE VISIT MARK 2025 10:45A M Gomez Mark MD Not available Not available Not available Lab CMP, serum or plasma 2024 025 [facility], [facility], [address], [address], [place], [address], 03/25/2025 14:38:33 CBC 2024 025 [facility], [facility], [address], [address], [place], [address], 03/25/2025 13:44:22 ferritin, serum or plasma 2024 025 [facility], [facility], [address], [address], [place], [address], 03/26/2025 05:32:56 ESR (erythroc yte sedimenta tion rate), blood 2024 025 [facility] ([facility]), [address] [place], [address], 03/25/2025 15:44:24 urinalysi s, complete 2024 025 [facility], [address] [place], [place] [address], [address], [place], [address], 12/31/2024 12:09:21 culture, urine 2024 025 [email or web address] [employer] [facility], [address] [place] [address], [address], [place], [address], 12/31/2024 12:47:16 culture, urine 2024 025 [facility], [address] [place] [address], [address], [place], [address], 12/22/2024 00:32:51 urinalysi s, dipstick 2024 025 [email or web address] [facility] ([facility]), [address] [place] [address], [address], 12/19/2024 16:30:26 urinalysi s, dipstick 2024 025 [facility] ([facility]), [address] [place] [address], [address], 11/27/2024 15:17:20 culture, urine 2024 025 [facility], [address] [place] [address], [address], [place], [address], 11/30/2024 07:07:49 Referral urogyneco logist referral [address] [facility], [address] [place] [address] [place] [address], [address], 01/13/2025 13:49:05 Procedures None recorded. Surgeries None recorded. Imaging DEXA 2024 025 [facility], [address] [place], [address], 04/13/2025 10:23:47 MAMMO, screening , digital, bilateral 2024 025 [facility], [address] [place] [address], [address], 04/05/2025 08:53:59 Medication Orders ciproflox acin 500 mg tablet 2024 [facility], [address], [place], [address], 12/31/2024 05:01:45 Bactrim DS 800 mg-160 mg tablet 2024 025 [facility], [address], [place], [address], 12/07/2024 05:01:01 Patient TargetsNo targets recorded. Patient Instructions Encounter Date Encounter Id Patient Instructions Last Modified By Organization Details Last Modified Time 12/19/2024 [id number] Increase fluids and we discussed UTI management [email or web address] Not available 12/19/2024 16:26:52 04/01/2025 [id number] advance directiv e education [email or web address] Not available 04/01/2025 12:36:32 Reason for Referral Urogynecologist Referral for Incontinence Referring Physician: Gomez Mark, Family Medicine, Encounter Date: 12/31/2024 Results Created Date Observation Date Name Description Value Unit Range Abnormal Flag Note LastModifiedBy Organization Detail LastModifiedTime 12/23/1912/21/2024 CULTU RE, URINE , ROUTI NE culture, urine, routine SEE NOTE abnormal CULTU RE, URINE , ROUTI NE Micro Numbe r: [id number] Test Statu s: Final Speci men Sourc e: Not given Speci men Quali ty: Adequ ate Resul t: Great er than 100,0 00 CFU/m L of Esche juana a coli Comme nt: No colle ction date was provi ded. The speci men is gener ally defin ed as stabl e up to 48 hours . The resul t(s) need( s) to be inter prete d cauti ously . Clini copat holog ic corre latio n is requi red. Repea t testi ng is recom sarah d as clini lizzy indic ated. [employer] [facility] ce is avail able with quest ions or comme nts based on your area of inter est: [phone] T ([phone]) E.col i ----- ----- ----- - INT VALDO AMOX/ CLAVU LANAT E S 4 AMP/S ULBAC CLEANING S <=2 CEFAZ ZACH NR <=4 2 CEFEP SOHAM S <=0.1 2 CEFTA ZIDIM E S <=1 CEFTR IAXON E S <=0.2 5 CIPRO FLOXA ALESHIA S <=0.0 6 GENTA MICIN S <=1 IMIPE NEM S <=0.2 5 LEVOF LOXAC IN S <=0.1 2 MEROP ENEM S <=0.2 5 NITRO FURAN TOIN S <=16 PIP/T AZOBA CTAM S <=4 TRIME THOPR IM/FOY LFA S <=20 S = Susce ptibl e I = Inter media te R = Resis tant NS = Not susce ptibl e SDD = Susce ptibl e Dose Depen dent * = Not Teste d NR = Not Repor marty NN = See Thera py Comme nts THERA PY COMME NTS Note 1: For infec tions other than uncom plica marty UTI cause d by E. coli, K. pneum oniae or P. mirab ilis: Cefaz zach is resis tant if VALDO > or = 8 mcg/m L. (Dist ingui shing susce ptibl e versu s inter media te for isola corina with VALDO < or = 4 mcg/m L requi res addit ional testi ng.) Note 2: For uncom pljoseph ferguson UTI cause d by E. coli, K. pneum oniae or P. mirab ilis: Cefaz zach is susce ptibl e if VALDO <32 mcg/m L and predi cts susce ptibl e to the oral agent s cefac claire, cefdi akua, cefpo doxim e, cefpr ozil, cefur oxime , cepha lexin and lorac arbef . NO COLLE CTION DATE RECEI DANY. WE HAVE USED THE DATE THE SPECI MEN WAS RECEI DANY BY THIS LABOR ATORY THE COLLE CTION DATE. IF THIS IS INCOR RECT, PLEAS E CONTA CT CLIEN T SERVI ALEPSH. PHONE NUMBE R: [phone] Not Available [facility] [address] [place], [address], 12/22/2024 00:32:51 11/18/19 25 11/19/2024 CULTU RE, URINE , ROUTI NE culture, urine, routine SEE NOTE abnormal CULTU RE, URINE , ROUTI NE Micro Numbe r: [id number] Test Statu s: Final Speci men Sourc e: Urine , clean catch Speci men Quali ty: Adequ ate Resul t: Great er than 100,0 00 CFU/m L of Esche juana a coli E.col i ----- ----- ----- - INT VALDO AMOX/ CLAVU LANAT E S <=2 AMP/S ULBAC CLEANING S <=2 CEFAZ ZACH NR <=4 2 CEFEP SOHAM S <=0.1 2 CEFTA ZIDIM E S <=1 CEFTR IAXON E S <=0.2 5 CIPRO FLOXA ALESHIA S <=0.0 6 GENTA MICIN S <=1 IMIPE NEM S <=0.2 5 LEVOF LOXAC IN S <=0.1 2 MEROP ENEM S <=0.2 5 NITRO FURAN TOIN S 32 PIP/T AZOBA CTAM S <=4 TRIME THOPR IM/FOY LFA S <=20 S = Susce ptibl e I = Inter media te R = Resis tant NS = Not susce ptibl e SDD = Susce ptibl e Dose Depen dent * = Not Teste d NR = Not Repor marty NN = See Thera py Comme nts THERA PY COMME NTS Note 1: For infec tions other than uncom plica marty UTI cause d by E. coli, K. pneum oniae or P. mirab ilis: Cefaz zach is resis tant if VALDO > or = 8 mcg/m L. (Dist ingui shing susce ptibl e versu s inter media te for isola corina with VALDO < or = 4 mcg/m L requi res addit ional testi ng.) Note 2: For uncom plica marty UTI cause d by E. coli, K. pneum oniae or P. mirab ilis: Cefaz zach is susce ptibl e if VALDO <32 mcg/m L and predi cts susce ptibl e to the oral agent s cefac claire, cefdi akua, cefpo doxim e, cefpr ozil, cefur oxime , cepha lexin and lorac arbef . Not Available [employer] [facility] [address] [place], [address], 11/19/2024 12:01:13 11/18/19 25 11/17/2024 urina lysis , dipst ick Leukocytes Large Not Available [facility] ([facility]) [address] [place] [address], [address], 11/17/2024 15:03:00 11/18/19 25 11/17/2024 urina lysis , dipst ick Nitrite positi ve Not Available [facility] ([facility]) [address] [place], [address], 11/17/2024 15:03:00 11/18/19 25 11/17/2024 urina lysis , dipst ick Urobilinogen 2 Not Available [facility] ([facility]) [address] [place], [address], 11/17/2024 15:03:00 11/18/19 25 11/17/2024 urina lysis , dipst ick Protein 100 Not Available [facility] ([facility]) [address] [place], [address], 11/17/2024 15:03:00 11/18/19 25 11/17/2024 urina lysis , dipst ick pH 5.0 Not Available [facility] ([facility]) [address] [place], [address], 11/17/2024 15:03:00 11/18/19 25 11/17/2024 urina lysis , dipst ick Blood Modera te Not Available [facility] ([facility]) [address] [place], [address], 11/17/2024 15:03:00 11/18/19 25 11/17/2024 urina lysis , dipst ick Specific Bracey 1.005 Not Available [facility] ( [facility]) [address] [place], [address], 11/17/2024 15:03:00 11/18/19 25 11/17/2024 urina lysis , dipst ick Ketone Trace Not Available [facility] ([facility]) [address] [place], [address], 11/17/2024 15:03:00 11/18/19 25 11/17/2024 urina lysis , dipst ick Bilirubin Negati ve Not Available [facility] ([facility]) [address] [place], [address], 11/17/2024 15:03:00 11/18/19 25 11/17/2024 urina lysis , dipst ick Glucose 100 Not Available [facility] ([facility]) [address] [place], [address], 11/17/2024 15:03:00 11/18/19 25 11/17/2024 urina lysis , dipst ick Appearance Clear Not Available [facility] ([facility]) [address] [place], [address], 11/17/2024 15:03:00 11/18/19 25 11/17/2024 urina lysis , dipst ick Color Gregg Not Available [facility]) [address] [place], [address], 11/17/2024 15:03:00 11/28/19 25 11/30/2024 CULTU RE, URINE , ROUTI NE culture, urine, routine SEE NOTE abnormal CULTU RE, URINE , ROUTI NE Micro Numbe r: [id number] Test Statu s: Final Speci men Sourc e: Urine , clean catch Speci men Quali ty: Adequ ate Resul t: Great er than 100,0 00 CFU/m L of Esche juana a coli E.col i ----- ----- ----- - INT VALDO AMOX/ CLAVU LANAT E S <=2 AMP/S ULBAC CLEANING S <=2 CEFAZ ZACH NR <=4 2 CEFEP SOHAM S <=0.1 2 CEFTA ZIDIM E S <=1 CEFTR IAXON E S <=0.2 5 CIPRO FLOXA ALESHIA S <=0.0 6 GENTA MICIN S <=1 IMIPE NEM S <=0.2 5 LEVOF LOXAC IN S <=0.1 2 MEROP ENEM S <=0.2 5 NITRO FURAN TOIN S 32 PIP/T AZOBA CTAM S <=4 TRIME THOPR IM/FOY LFA S <=20 S = Susce ptibl e I = Inter media te R = Resis tant NS = Not susce ptibl e SDD = Susce ptibl e Dose Depen dent * = Not Teste d NR = Not Repor marty NN = See Thera py Comme nts THERA PY COMME NTS Note 1: For infec tions other than uncom plica marty UTI cause d by E. coli, K. pneum oniae or P. mirab ilis: Cefaz zach is resis tant if VALDO > or = 8 mcg/m L. (Dist ingui shing susce ptibl e versu s inter media te for isola corina with VALDO < or = 4 mcg/m L requi res addit ional testi ng.) Note 2: For uncom plica marty UTI cause d by E. coli, K. pneum oniae or P. mirab ilis: Cefaz zach is susce ptibl e if VALDO <32 mcg/m L and predi cts susce ptibl e to the oral agent s cefac claire, cefdi akua, cefpo doxim e, cefpr ozil, cefur oxime , cepha lexin and lorac arbef . Not Available [facility] [address] [place], [address], 11/30/2024 07:07:49 11/28/1911/27/2024 urina lysis , dipst ick Leukocytes Large Not Available [facility] ( [facility]) [address] [place], [address], 11/27/2024 15:07:44 11/28/19 25 11/27/2024 urina lysis , dipst ick Nitrite positi ve Not Available [facility] ([facility]) [address] [place], [address], 11/27/2024 15:07:44 11/28/19 25 11/27/2024 urina lysis , dipst ick Urobilinogen .2 Not Available [facility] ([facility]) [address] [place], [address], 11/27/2024 15:07:44 11/28/19 25 11/27/2024 urina lysis , dipst ick Protein 30 Not Available [facility] [address] [place], [address], 11/27/2024 15:07:44 11/28/19 25 11/27/2024 urina lysis , dipst ick pH 5.5 Not Available [facility] ([facility]) [address] [place], [address], 11/27/2024 15:07:44 11/28/19 25 11/27/2024 urina lysis , dipst ick Blood Modera te Not Available [facility] ([facility]) [address] [place], [address], 11/27/2024 15:07:44 11/28/19 25 11/27/2024 urina lysis , dipst ick Specific Bracey 1.010 Not Available [facility] ( [facility]) [address] [place], [address], 11/27/2024 15:07:44 11/28/19 25 11/27/2024 urina lysis , dipst ick Ketone Negati ve Not Available [facility] ([facility]) [address] [place], [address], 11/27/2024 15:07:44 11/28/19 25 11/27/2024 urina lysis , dipst ick Bilirubin Negati ve Not Available [facility] ([facility]) [address] [place], [address], 11/27/2024 15:07:44 11/28/19 25 11/27/2024 urina lysis , dipst ick Glucose Negati ve Not Available [facility] ([facility]) [address] [place], [address], 11/27/2024 15:07:44 11/28/19 25 11/27/2024 urina lysis , dipst ick Appearance Cloudy Not Available [facility] ([facility]) [address] [place], [address], 11/27/2024 15:07:44 11/28/19 25 11/27/2024 urina lysis , dipst ick Color Pale Yellow Not Available [facility] ([facility]) [address] [place], [address], 11/27/2024 15:07:44 12/20/19 25 12/19/2024 urina lysis , dipst ick Leukocytes Large Not Available [facility] [address] [place], [address], 12/19/2024 15:49:12 12/20/19 25 12/19/2024 urina lysis , dipst ick Nitrite positi ve Not Available [facility] ([facility]) [address] [place], [address], 12/19/2024 15:49:12 12/20/19 25 12/19/2024 urina lysis , dipst ick Urobilinogen .2 Not Available [facility] ([facility]) [address] [place], [address], 12/19/2024 15:49:12 12/20/19 25 12/19/2024 urina lysis , dipst ick Protein Trace Not Available [facility] ([facility]) [address] [place], [address], 12/19/2024 15:49:12 12/20/19 25 12/19/2024 urina lysis , dipst ick pH 5.0 Not Available [facility] ([facility]) [address] [place], [address], 12/19/2024 15:49:12 12/20/19 25 12/19/2024 urina lysis , dipst ick Blood Small Not Available [facility] ([facility]) [address] [place], [address], 12/19/2024 15:49:12 12/20/19 25 12/19/2024 urina lysis , dipst ick Specific Bracey 1.005 Not Available [facility] ( [facility]) [address] [place], [address], 12/19/2024 15:49:12 12/20/19 25 12/19/2024 urina lysis , dipst ick Ketone Negati ve Not Available [facility] ([facility]) [address] [place], [address], 12/19/2024 15:49:12 12/20/19 25 12/19/2024 urina lysis , dipst ick Bilirubin Negati ve Not Available [facility] ([facility]) [address] [place], [address], 12/19/2024 15:49:12 12/20/19 25 12/19/2024 urina lysis , dipst ick Glucose Negati ve Not Available [facility] ([facility]) [address] [place], [address], 12/19/2024 15:49:12 12/20/19 25 12/19/2024 urina lysis , dipst ick Appearance Cloudy Not Available [facility] [address] [place], [address], 12/19/2024 15:49:12 12/20/19 25 12/19/2024 urina lysis , dipst ick Color Gregg Not Available [facility] ([facility]) [address] [place], [address], 12/19/2024 15:49:12 01/01/20 25 12/31/2024 URINA LYSIS WITH MICRO color YELLOW Not Available [facility] [address] [facility], [place], [address], 12/31/2024 12:09:21 01/01/20 25 12/31/2024 URINA LYSIS WITH MICRO clarity CLEAR Not Available [facility] [address] [facility] [address], [place], [address], 12/31/2024 12:09:21 01/01/20 25 12/31/2024 URINA LYSIS WITH MICRO glu NEGATI VE Not Available [facility] [address], [place], [address], 12/31/2024 12:09:21 01/01/2012/31/2024 URINA LYSIS WITH MICRO bili NEGATI VE Not Available [facility] [address], [place], [address], 12/31/2024 12:09:21 01/01/20 25 12/31/2024 URINA LYSIS WITH MICRO ket NEGATI VE Not Available [facility] [address], [place], [address], 12/31/2024 12:09:21 01/01/20 25 12/31/2024 URINA LYSIS WITH MICRO S.g 1.015 1.005- 1.025 Not Available [facility] [address], [place], [address], 12/31/2024 12:09:21 01/01/2012/31/2024 URINA LYSIS WITH MICRO pH 5.5 5.0-7. 0 Not Available [facility] [address], [place], [address], 12/31/2024 12:09:21 01/01/20 25 12/31/2024 URINA LYSIS WITH MICRO pro NEGATI VE Not Available [facility] [address], [place], [address], 12/31/2024 12:09:21 01/01/20 25 12/31/2024 URINA LYSIS WITH MICRO uro 0.2 Not Available [facility] [address], [place], [address], 12/31/2024 12:09:21 01/01/2012/31/2024 URINA LYSIS WITH MICRO nit NEGATI VE Not Available [facility] [address], [place], [address], 12/31/2024 12:09:21 01/01/2012/31/2024 URINA LYSIS WITH MICRO blo NEGATI VE Not Available [facility] [address], [place], [address], 12/31/2024 12:09:21 01/01/20 25 12/31/2024 URINA LYSIS WITH MICRO claude NEGATI VE Not Available [facility] [address], [place], [address], 12/31/2024 12:09:21 01/01/2012/31/2024 URINA LYSIS WITH MICRO WBC 4-5 Not Available [facility] [address], [place], [address], 12/31/2024 12:09:21 01/01/2012/31/2024 URINA LYSIS WITH MICRO RBC 0-1 Not Available [facility] [address], [place], [address], 12/31/2024 12:09:21 01/01/2012/31/2024 URINA LYSIS WITH MICRO epi cells 8-10 abnormal Not Available [facility] [address], [place], [address], 12/31/2024 12:09:21 01/01/20 25 12/31/2024 URINA LYSIS WITH MICRO bacteria NEGATI VE Not Available [facility] [address] [facility], [place], [address], 12/31/2024 12:09:21 01/01/20 25 12/31/2024 URINA LYSIS WITH MICRO other NG Not Available [facility] [address] [facility], [place], [address], 12/31/2024 12:09:21 03/25/20 25 03/25/2025 CBC WBC 6.8 x10 4.0-10 .5 Not Available [facility] [address] [facility], [place], [address], 03/25/2025 13:44:22 03/25/20 25 03/25/2025 CBC RBC 4.40 x10 3.50-5 .50 Not Available [facility] [address] [facility], [place], [address], 03/25/2025 13:44:22 03/25/20 25 03/25/2025 CBC HGB 13.3 g/dL 12.0-1 6.0 Not Available [facility] [address] [facility], [place], [address], 03/25/2025 13:44:22 03/25/20 25 03/25/2025 CBC HCT 41.0 % 37.0-4 7.0 Not Available [facility] [address] [facility], [place], [address], 03/25/2025 13:44:22 03/25/20 25 03/25/2025 CBC MCV 93.1 fL 80.0-9 9.9 Not Available [facility] [address] [facility], [place], [address], 03/25/2025 13:44:22 03/25/20 25 03/25/2025 CBC MCH 30.2 pg 27.0-3 2.0 Not Available [facility] [address] [facility], [place], [address], 03/25/2025 13:44:22 03/25/20 25 03/25/2025 CBC MCHC 32.4 g/dL 32.0-3 6.0 Not Available [facility] [address] [facility], [place], [address], 03/25/2025 13:44:22 03/25/2003/25/2025 CBC RDW 13.1 % 11.5-1 4.5 Not Available [facility] [address] [facility], [place], [address], 03/25/2025 13:44:22 03/25/2003/25/2025 CBC plt 360.1 x10 140.0- 451.0 Not Available [facility] [address] [facility], [place], [address], 03/25/2025 13:44:22 03/25/20 25 03/25/2025 CBC lymphocytes % 23.0 % 20.0-5 0.0 Not Available [facility] [address] [facility] [address], [place], [address], 03/25/2025 13:44:22 03/25/2003/25/2025 CBC granulcytes % 62.6 % 30.0-7 0.0 Not Available [facility] [address] [facility] [facility], [place], [address], 03/25/2025 13:44:22 03/25/2003/25/2025 CBC monocytes % 11.1 % 2.0-16 .0 Not Available [facility] [address] [facility], [place], [address], 03/25/2025 13:44:22 03/25/20 25 03/25/2025 CBC granulcytes# 4.2 x10 Not Karoline ilable [facility] [address] [facility] [address], [place], [address], 03/25/2025 13:44:22 03/25/20 25 03/25/2025 CBC lymphocytes # 1.6 x10 Not Available [facility] [address] [facility] [address], [place], [address], 03/25/2025 13:44:22 03/25/20 25 03/25/2025 CBC monocytes # 0.8 x10 Not Avai lable [facility] [address] [address], [place], [address], 03/25/2025 13:44:22 03/25/20 25 03/25/2025 CMP (FEMA LE) glucose 104.0 mg/dL 60.0-9 9.0 high Not Available [facility] [address] [facility], [place], [address], 03/25/2025 14:38:33 03/25/20 25 03/25/2025 CMP (FEMA LE) BUN (blood urea nitrogen) 20.0 mg/dL 10.0-2 6.0 Not Available [facility] [address] [facility], [place], [address], 03/25/2025 14:38:33 03/25/20 25 03/25/2025 CMP (FEMA LE) creatinine (serum) 1.0 mg/dL 0.4-1. 5 Not Available [facility] [address] [address], [place], [address], 03/25/2025 14:38:33 03/25/20 25 03/25/2025 CMP (FEMA LE) BUN/creatini ne ratio 20.00 ratio Not Available [facility] [address] [facility], [place], [address], 03/25/2025 14:38:33 03/25/20 25 03/25/2025 CMP (FEMA LE) eGFR calculated 56.4 Not Available [facility] [address] [facility], [place], [address], 03/25/2025 14:38:33 03/25/20 25 03/25/2025 CMP (FEMA LE) total protein 8.3 g/dL 6.0-8. 5 Not Available [facility] [address] [facility], [place], [address], 03/25/2025 14:38:33 03/25/20 25 03/25/2025 CMP (FEMA LE) total bilirubin 0.5 mg/dL 0.2-1. 3 Not Available [facility] [address] [facility], [place], [address], 03/25/2025 14:38:33 03/25/20 25 03/25/2025 CMP (FEMA LE) albumin 4.6 g/dL 3.5-5. 5 Not Available [facility] [address] [facility], [place], [address], 03/25/2025 14:38:33 03/25/20 25 03/25/2025 CMP (FEMA LE) globulin 3.7 calc Not Available [facility] [address] [facility] [address], [place], [address], 03/25/2025 14:38:33 03/25/20 25 03/25/2025 CMP (FEMA LE) AST (SGOT) 24.0 U/L 0.0-46 .0 Not Available [facility] [address] [facility] [address], [place], [address], 03/25/2025 14:38:33 03/25/20 25 03/25/2025 CMP (FEMA LE) altv (SGPT) 11.0 U/L 13.0-6 9.0 abnormal Not Available [facility] [address] [facility], [place], [address], 03/25/2025 14:38:33 03/25/20 25 03/25/2025 CMP (FEMA LE) A/G ratio 1.2 ratio Not Available [facility] [address] [facility] [address], [place], [address], 03/25/2025 14:38:33 03/25/20 25 03/25/2025 CMP (FEMA LE) ALP phos 70.0 U/L 30.0-1 40.0 normal Not Available [facility] [address] [facility] [address], [place], [address], 03/25/2025 14:38:33 03/25/20 25 03/25/2025 CMP (FEMA LE) calcium 9.5 mg/dL 8.4-10 .5 Not Available [facility] [address] [facility] [address], [place], [address], 03/25/2025 14:38:33 03/25/20 25 03/25/2025 CMP (FEMA LE) sodium 135.0 mmol/ L 136.0- 145.0 low Not Available [facility] [address] [facility] [address], [place], [address], 03/25/2025 14:38:33 03/25/20 25 03/25/2025 CMP (FEMA LE) potassium 4.4 mmol/ L 3.5-5. 1 Not Available [facility] [address] [facility] [address], [place], [address], 03/25/2025 14:38:33 03/25/20 25 03/25/2025 CMP (FEMA LE) chloride 100.0 mmol/ L 98.0-1 10.0 normal Not Available [facility] [address] [facility] [address], [place], [address], 03/25/2025 14:38:33 03/25/20 25 03/25/2025 CMP (FEMA LE) C02 24.0 mmol/ L 22.0-3 1.0 Not Available [facility] [address] [facility] [address], [place], [place], [address], 03/25/2025 14:38:33 03/25/20 25 03/25/2025 CMP (FEMA LE) anion gap 11.0 calc Not Available [facility] [address] [address], [place], [address], 03/25/2025 14:38:33 03/25/20 25 03/25/2025 CMP (FEMA LE) osmolality 281.9 calc Not Available [facility] [address] [address], [place], [address], 03/25/2025 14:38:33 03/25/20 25 03/26/2025 JIM TIN ferritin 77 NG/mL 16-288 normal Not Available [facility] [address] [place], [address], 03/26/2025 05:32:56 03/30/20 25 03/30/2025 ESR (eryt hrocy te sedim entat ion rate) , blood ESR 40 Not Available [facility] ([facility]) [address] [place], [address], 03/25/2025 15:43:37 03/25/20 25 12/15/2024 MAMMO , scree jose, digit al, bilat eral No observ ation record ed. [email or web address] [facility] Medical Records Dept [address] [place], [address], 04/08/2025 16:39:14 04/12/2004/12/2025 DEXA No observ ation record ed. [facility] [address] [place], [address], 04/14/2025 17:38:26 04/23/20 25 12/15/2024 MAMMO , scree jose, digit al, bilat eral No observ ation record ed. [email or web address] Medical Records Dept [address] [place], [address], 04/26/2025 15:30:08 Result Notes None recorded. Problems Name Problem SNOMED Code Status Onset Date Resolution Date Notes Provider Name and Address Organization Details Recorded Time Malignan t neoplasm of breast 115547298 Active hx of MARY arshad [facility] 5 07:40:42 Tonsille ctomy Completed 201502/29/2016 Tonsille ctomy - Status is Inactive ; 02/29/20 16 12:19PM by Terri Cristobal CMT, Annotati on/Addmaritza dum; Promoted ; acuity set as *; Not Available [facility] 3 03:10:49 Seasonal allergic rhinitis 632731029 [facility] 2022 [facility] 14:26:34 Malignan t neoplasm of breast 082910103 Completed 202209/23/2024 MARY arshad [facility] 5 07:40:42 Mixed anxiety and depressi ve disorder 695972539 Active 2023 KATHY arshad [facility] 4 08:31:31 Hyperten sive disorder 34797957 Active 2023 KAHTY arshad [facility] 4 08:31:44 Carcinom a of breast 722216766 Completed 202309/23/2024 Jaja arshad, [facility] 5 12:26:28 Cardiome brian 3974237 Active [address] [facility], [facility] 4 08:25:05 Hyperlip idemia 09225001 Active 2023 KATHY CAICEDO null, [facility] 4 08:25:13 Hyponatr emia 04357655 Active 2023 Jaja Cruz [facility] 5 12:27:37 Irritabl e bowel syndrome 33130409 Active 2023 KATHY arshad, [facility] 4 08:25:29 Stasis dermatit is 70456698 Completed 202309/23/[address] [facility], [facility] 5 12:23:34 Localize d osteoart hrosis 93209755 Active [address] [facility], [facility]reenL[facility]CJune 4 08:26:45 Nodule of lung 008398358 Active 2023 right [facility] 5 12:27:37 Anemia due to blood loss 024772173 Completed 202309/23/2024 Jaja arshad, [facility] 5 12:23:34 Divertic ulosis of colon 321402343 Active 2023 Jaja Cruz [facility] 5 12:27:37 Iron deficien cy anemia 77615488 Active 2023 [facility] 12:27:37 Mild mitral valve regurgit ation 882605663 Active 2024 MARY GEORGE [facility] DanteCJune 5 07:36:42 Mild tricuspi d valve regurgit ation 131496048 Active 2024 MARY GEORGE [facility] 5 07:36:42 Recurren t major depressi ve episodes , mild 428390902 Active 2024 MARY GEORGE [facility] 5 07:43:09 Chronic urinary tract infectio n 785033048 Active 2024 MARY GEORGE [facility] 5 11:30:04 Problem Notes None recorded. Procedures Surgical History Date Name Laterality Status Provider Name and Address Organization Details Recorded Time 2024 bone density scan [facility] 17:37:47 2024 Most Recent Mammogram completed MARY GEORGE [facility]reenLShyam 5 15:29:48 2024 mammography completed MARYODALIS BERGALLEY [facility] 5 11:41:58 2023 esophagogastroduodenoscopy completed SEBASTIAN DAVID [facility] LJuneL[facility]CJune 4 12:03:20 2023 colonoscopy completed Jaja Cruz [facility]reenLS[facility]am 5 12:21:39 2013 exercise stress test - endocrine completed KATHY CAICEDO [facility], Matty 4 08:30:20 2011 Date of Last Pap Smear completed JERALD MELARA [facility] 3 11:52:51 lumpectomy of breast completed KATHY CAICEDO [facility] 3 16:48:22 Imaging Results None recorded. Procedure Notes None recorded. Medical Equipment None Reported. Allergies Allergen ID Allergen Name Allergen Category Reaction Reaction Severity Criticality Documentation Date Start Date Code Code System Note Provider Name and Address Organization Details Recorded Time 80822 losartan potassium medicatio n cough moderate low 02/02/202390390 0 RxNorm Rosina arshad [facility] Matty 4 15:25:28 Medications Name Sig Start Date [...] Not Available venlafaxi ne daily 02/04 completed 59812; Recorded 08/09/19 8:08AM by Kathy Caicedo LPN (Authori zed through Zina Bradshaw MD), Refill Request; Mail Order Quantity : 90 Capsule; Mail Order Days: 90 Days; Refill Quantity : 30; Capsule; Not Available Not Available Not Available metoprolo l succinate two times daily 03/01 completed 20738; Recorded 08/09/19 8:09AM by Kathy Caicedo LPN (Authori zed through Zina Bradshaw MD), Refill Request; Mail [...] (BMI) Body weight Oxygen saturation Heart rate Body temperature Systolic And Diastolic Provider Name and Address Organization Details Last Updated DateTime 5 161.29 cm 25.1 kg/m2 93274.3 g 97 % 76 /min 97.8 [degF] 120/72 mm[Hg] Angélica Cloud [facility] 5 15:19:08 Date Recorded Body height Body mass index (BMI) Body weight Body temperature Heart rate Oxygen saturation Systolic And Diastolic Provider Name and Address Organization Details Last Updated DateTime 5 161.29 cm 25.5 kg/m2 40393.4 9 g 98.4 [degF] 66 /min 96 % 128/74 mm[Hg] Ksenia Gu [facility] 5 15:57:27 Date Recorded Body height Body mass index (BMI) Body weight Body temperature Heart rate Oxygen saturation Systolic And Diastolic Provider Name and Address Organization Details Last Updated DateTime 5 161.29 cm 25.3 kg/m2 62736.8 9 g 97.4 [degF] 65 /min 97 % 133/78 mm[Hg] MARY GEORGE [facility] 5 11:18:49 Date Recorded Body height Body mass index (BMI) Body weight Body temperature Heart rate Oxygen saturation Systolic And Diastolic Provider Name and Address Organization Details Last Updated DateTime 5 161.29 cm 25.3 kg/m2 95599.8 9 g 96.9 [degF] 58 /min 97 % 120/72 mm[Hg] Jaja Cruz [facility] 5 11:50:39 Date Recorded Body height Body mass index (BMI) Body weight Oxygen saturation Heart rate Respiratory rate Body temperature Systolic And Diastolic Provider Name and Address Organization Details Last Updated DateTime 5 161.29 cm 25.3 kg/m2 79648.8 9 g 97 % 66 /min 18 /min 97 [degF] 126/72 mm[Hg] MARY JESUS [facility] 11:28:22 Social History Question Answer Notes LastModified by Organizat ion Details LastModified Time Tobacco Smoking Status Never Smoker [facility] 10/15/2022 11:53:28 What Was The Date Of Your Most Recent Tobacco Screening? 03/25/2025 [email or web address] Information not available 03/25/2025 Sex: Unknown Functional Status Question Answer Note LastModified by Organizat ion Details LastModified Time Do you use any illicit or recreational drugs? No [email or web address] Information not available 10/15/2022 Do you or have you ever used any other forms of tobacco or nicotine? No [email or web address] Information not available 06/02/2024 What is your level of alcohol consumption? None [email or web address] Information not available 10/15/2022 Do you or have you ever used any nicotine-free cigarettes, vape, or chewing tobacco? No [email or web address] Information not available 06/02/2024 Mental Status None recorded. Family History Relationship Description Onset Age of this Age Resolved Age Notes LastModified by Organization Details LastModified Time Mother Hypertensive disorder Heart block [email or web address] Not available 08/21/2023 08:28:12 Father Myocardial infarction HTN [email or web address] Not available 08:28:24 Medical History Condition Response Coronary Artery Disease N Gout N Other N Kidney Stones N Blood Diseases N Hyperthyroidism N Blood Transfusion N Breast Cancer N COPD N Hypothyroidism N Lung Disease N Depression N Defects or Inherited Disease N Developmental or Behavioral Disorders N Breast Problem N Difficulty Swallowing N Anesthesia Complications N Anxiety Disorder N Meniere's disease N Muscle, Joint, or Bone Problems N Vision or Eye Problems N Arthritis N Infertility N Polyps N Cancer N Stroke N Varicosities N Endometriosis N Bladder or Kidney Problems N High Cholesterol N Liver Disease N Headaches N Fibromyalgia N Kidney Disease N Allergies/Hayfever N Heart Problems N Ear or Hearing Problems N Hospitalizations N Thyroid Problems N GI Problems N ADD/ADHD N Eating Disorder N Skin Problems N Anemia N Constipation N Mental Illness N Diabetes N Ovarian Cancer N Bedwetting N Seizures/Epilepsy N Tuberculosis N Eczema N Abuse/Domestic Violence N Diverticulitis N Asthma N Reflux/GERD N Hepatitis N Heart Disease N Pulmonary Embolism N Chronic Ear Infections N Pre-Eclampsia N Hypertension Y Chicken Pox N Autism Spectrum Disorder (ASD) N Osteoporosis N Thrombophilias N Gynecological History Statement/Question Response [...] virus, trivalent, preservative 0 completed Not Available [facility] 02/02/2023 02:44:17 pneumococcal polysaccharide PPV23 0 completed Not Available [facility] 02/02/2023 02:44:17 Influenza, split virus, trivalent, preservative 3 completed Not Available [facility] 02/02/2023 02:44:17 Influenza, split virus, trivalent, preservative 5 completed [facility] 02/07/2024 15:25:12 Influenza, split virus, trivalent, preservative 4 completed Not Available [facility] 02/02/2023 02:44:18 Influenza, split virus, trivalent, preservative 9 completed [facility] 02/07/2024 15:25:12 zoster live 9 completed Not Available [facility] 02/02/2023 02:44:18 Influenza, split virus, trivalent, preservative 2 completed Not Available [facility] 02/02/2023 02:44:18 Influenza, split virus, trivalent, preservative 8 completed Not Available [facility] 02/02/2023 02:44:18 Influenza, split virus, trivalent, preservative 6 completed [facility] 02/07/2024 15:25:12 Pneumococcal conjugate PCV 13 6 completed Rosina Freed [facility] 02/07/2024 15:25:12 Influenza, split virus, trivalent, preservative 7 completed Rosina Freed [facility] 02/07/2024 15:25:12 Influenza, split virus, trivalent, preservative 7 completed Rosina Freed [facility] 02/07/2024 15:25:12 Td(adult) unspecified formulation 3 completed Not Available [facility] 02/02/2023 02:44:19 Pneumococcal conjugate PCV20, polysaccharide [id number] conjugate, adjuvant, PF 5 completed MARY GEORGE [facility] 03/25/2025 12:32:45 zoster recombinant 3 completed Rosina Freed [facility] 02/07/2024 15:25:12 zoster recombinant 2 completed Rosina Freed [facility] 02/07/2024 15:25:12 Influenza, high-dose, quadrivalent, PF 1 completed [facility] 02/07/2024 15:25:12 Influenza, high-dose, quadrivalent, PF 2 completed Rosina Freed [facility] 02/07/2024 15:25:12 COVID-19, mRNA, LNP-S, PF, 30 mcg/0.3 mL dose 1 completed [facility] 02/07/2024 15:25:12 COVID-19, mRNA, LNP-S, PF, 30 mcg/0.3 mL dose 1 completed [facility] 02/07/2024 15:25:12 COVID-19, mRNA, LNP-S, PF, 30 mcg/0.3 mL dose 1 completed [facility] 02/07/2024 15:25:12 Influenza, high-dose, trivalent, PF [address] [facility] 02/07/2024 15:25:12 Influenza, high-dose, trivalent, PF 6 completed Rosina Freed [facility] 02/07/2024 15:25:12 Influenza, high-dose, trivalent, PF 7 completed [facility] 02/07/2024 15:25:12 Novel [id number] 9 completed Rosina Freed [facility] 02/07/2024 15:25:12 Influenza, split virus, quadrivalent, PF 5 completed Rosina Freed [facility] 02/07/2024 15:25:12 influenza, unspecified formulation 3 completed [facility] 03/10/2024 16:35:58 Influenza, split virus, trivalent, PF 4 completed GORDO MARK PA-C [address] [place] [address], [address], [facility] [place] 03/23/2024 11:18:03 Past Encounters Encounter ID Performer Location Encounter Start Date Encounter Closed Date Diagnosis/Indication Diagnosis SNOMED-CT Code Diagnosis ICD10 Code Diagnosis IMO Codes Diagnosis Note [id number] PAM SALAS [facility] ([facility]) [address] [place] [address] 09/26/2022 16:31:10 10/31/2022 18:05:45 [id number] Kirill Dunn MD [facility] ([facility]) [address] [place] [id number] 5 10/02/2022 15:18:00 10/10/2022 16:02:32 Upper respiratory infection 67665027 J06.9 complete course of abx. patient was encouraged to complete course of prednisone as it was helping her some with her symptoms. continue supportive care. Malaise and fatigue 2717 14965 R53.83 check labs. patient has h/o hyponatrem ia and this may be contributi ng to fatigue. Seasonal a llergic rhinitis 340778142 J30.2 discussed treatment. patient was encouraged to restart flonase. [id number] Zina Bradshaw MD [facility] ([facility]) [address] [place] [id number] 5 10/15/2022 11:42:15 10/22/2022 11:07:50 Upper respiratory infection 55082041 J06.9 resolved, just took longer than usual [id number] Zina Bradshaw MD [facility] ([facility]) [address] [place] [id number] 5 11/14/2022 12:01:08 11/14/2022 17:29:36 Sprain of right ankle [id number] 0245362 S93.401A Improves as to be expected, reassuranc e. Seborrheic dermatitis 50 218335 L21.9 OTC medicated selsun blue. f/u if worsening or not improved [id number] Zina Bradshaw MD [facility] ([facility]) [address] [place] [id number] 5 02/04/2023 13:55:30 02/04/2023 17:59:45 Viral gastroenteritis 675180093 A08.4 likely self limiting, advised bland diet for the next 2 days, monitor diet for triggers [id number] Kirill Dunn MD [facility] ([facility]) [address] [place] [id number] 5 03/01/2023 11:56:40 03/10/2023 08:26:50 Dysuria 34869896 R30.0 Acute urin екатерина tract infection 277236356 N39.0 [id number] Zina Bradshaw MD [facility] ([facility]) [address] [place] [id number] 5 03/28/2023 15:32:52 03/28/2023 16:03:20 Insomnia 761747895 F51.09 Takes 1/2 a tylenol pm with good result. She has not noticed any adverse effects since starting it. In this case I think she can continue the diphenhydr amine since she does not seem to have any SE....tria l of a different sleep aid could results in SE. Seborrheic keratosis 394 322494 L82.1 right lower leg. reassuranc e appears benign. [id number] Zina Bradshaw MD [facility] ([facility]) [address] [place] [id number] 5 05/14/2023 16:41:35 05/21/2023 13:13:21 Pruritic rash 06151946 L28.2 Pt states it itches. Unclear etiology. with the pinkness in her finger web I have concern for possible shingles. Pt will monitor and start antiviral if progresses . [id number] Zina Bradshaw MD [facility] ([facility]) [address] [place] [id number] 5 08/21/2023 11:45:32 08/21/2023 13:45:35 Essential hypertension 28133045 I10 her pulse here was 94 but at home was running low, so we will not increase the metoprolol . 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 she has a lot at home. if it is working she will call for 75mg tab script to be sent to [facility]. History of malignant neoplasm of breast 775551608 Z85.3 she has some labs for Onc coming up [id number] Zina Bradshaw MD [facility] ([facility]) [address] [place] [id number] 5 09/02/2023 15:40:09 09/03/2023 09:27:14 Dizziness 544917443 R42 orthostati c plus possible BPV. Epleys handout given to perform BID, meclizine prn. f/u if worsening or not improved. Orthostati c hypotension 63110008 I95.1 pt is orthostati c here today. advised more fluids. she has labs for Onc and her sodium has been low. advised increase sodium intake slightly. Her home BPs are at goal, not low but are all done sitting. [id number] Zina Bradshaw MD [facility] ([facility]) [address] [place] [address] [id number] 5 09/12/2023 14:56:53 09/12/2023 16:31:54 Hypertensive disorder 41215657 I10 Diarrhea 67801904 R19.7 one bad episode, has not felt right ever since then. I encouraged to push fluids. Benign par oxysmal positional vertigo 649824455 H81.10 improved with epleys [id number] Zina Bradshaw MD [facility] ([facility]) [address] [place] [id number] 5 12/18/2023 17:04:21 12/18/2023 17:34:23 Herpes zoster 5975226 B02.9 [id number] Zina Bradshaw MD [facility] ([facility]) [address] [place] [address] [id number] 5 02/06/2024 11:59:54 02/06/2024 14:05:51 Malaise and fatigue 509252686 R53.83 has labs at oncology - everything was good except the sodium. Benign par oxysmal positional vertigo 326382203 H81.10 had improved with epleys, but not resolved. Mixed anxi ety and depressive disorder 481847373 F41.8 she should be on 75mg total.she will check when she gets home if it is the 37.5 that she is taking twice daily.... [id number] Zina Bradshaw MD [facility] ([facility]) [address] [place] [address] [id number] 5 02/24/2024 14:27:05 03/01/2024 22:45:36 Dizziness 039207698 R42 no longer BPV, orthostati c. Orthostati c hypotension 70361045 I95.1 she does drop by a good 22 points systolic, (however, interestin gly, her BP also increases significan tly with sitting vs laying or standing). hold 1 metoprolol . f/u in 3 weeks [id number] GORDO MARK PA-C [facility] ([facility]) [address] [place] [id number] 5 03/12/2024 11:04:44 03/23/2024 15:56:12 Adult health examination 959754009 Z00.00 Administra tion of influenza vaccine 31258122 Z23 Essential hypertension 08581740 I10 Menopausal symptom 76369 002 E89.41 hot flashes Orthostati c hypotension 59726870 I95.1 Personal h istory of primary malignant neoplasm of breast 366021035 Z85.3 LEFT [id number] Zina Bradshaw MD [facility] ([facility]) [address] [place] [address] [id number] 5 03/16/2024 11:25:18 03/16/2024 13:46:28 Hypertensive disorder 71454951 I10 still quite orthostati c. stop the metoprolol altogether , f/u BP check in 1 month. Her average home blood pressures seem to be running a little bit higher than the ones we got here today. We will go ahead and stop the metoprolol altogether . She should continue taking the amlodipine . Follow-up in 2 weeks for blood pressure check 03/16/2024 Orthostati c hypotension 00654202 I95.1 As above. Patient denies any recent COVID infection. Her skin and mucous membranes do appear well-hydra marty today 03/16/2024 [id number] Zina Bradshaw MD [facility] ([facility]) [address] [place] [address] [id number] 5 03/19/2024 15:09:57 03/19/2024 16:01:02 Hypertensive disorder 55076879 I10 still quite orthostati c. stop the metoprolol altogether , f/u BP check in 1 month. Her average home blood pressures seem to be running a little bit higher than the ones we got here today. We will go ahead and stop the metoprolol altogether . She should continue taking the amlodipine . Follow-up in 2 weeks for blood pressure check 03/16/2024 When patient stopped the metoprolol altogether her blood pressure increased significan tly into the 180s at which point she was still orthostati c she had a sitting blood pressure 188 and a standing blood pressure in the 150s. She called to let us know and we restarted her on 1 metoprolol daily. She is here today because the amlodipine was the newest medicine added to her regimen and she would like to try stopping that instead. We will have her stop the amlodipine and take the metoprolol twice daily. 03/19/2024 Orthostati c hypotension 66567288 I95.1 This continues to be an issue despite decreasing her blood pressure medication s. Her blood pressure just increases but still remains orthostati c for example she had a sitting 188 and a standing in the 150s. She has been referred on to cardiology . 03/19/2024 [id number] Zina Bradshaw MD [facility] ([facility]) [address] [place] [address] [id number] 5 03/25/2024 12:36:20 03/25/2024 14:47:55 [id number] Zina Bradshaw MD [facility] ([facility]) [address] [place] [address] [id number] 5 04/06/2024 14:54:52 04/07/2024 10:25:25 Seen in hospital outpatient department 935475908 Z76.89 Currently on treatment for UTI. Anemia 605517440 D64.9 colonocsop y age 73 - everything was good. We need to obtain her hospital records. She had a hemoglobin here in February that was 12.3. If she was declared very anemic in the ER I have concern for acute blood loss. Patient denies any hemoptysis or any visible hematochez ia. We will obtain hospital records and new labs. She has a follow-up visit in about 10 days [id number] Gomez Mark MD [facility] ([facility]) [address] [place] [address] [phone] 5 04/13/2024 11:17:55 04/13/2024 13:07:49 Anemia due to blood loss 377578242 D50.0 her hgb in the ER was 8.0repeat was 9.3 yearshe was started on ferrous gluconate 324 mg po qday. she is taking that. [id number] Real Tristan MD [facility] ([facility]) [address] [place] [address] [id number] 5 04/22/2024 12:32:25 04/22/2024 16:41:30 Screening for malignant neoplasm of colon 084945564 Z12.11 Anemia due to blood loss 966729693 D50.0 [id number] Gomez Mark MD [facility] ([facility]) [address] [place] [address] [id number] 5 05/04/2024 11:48:32 05/04/2024 13:03:08 Iron deficiency anemia 61779256 D50.9 endoscopy is scheduled next week.hgb is trending upward. no sign of bleeding this month. she is watching really carefully. [id number] KANNAN BRAND LAUNCH ENGINEER [facility] ([facility]) [address] [place] [address] [id number] 5 05/15/2024 10:30:43 05/15/2024 15:34:40 Acute urticaria 505637560 L50.9 Discussed steroid injection. No oral pills since she recently had a scope looking for possible GI bleeding. Discussed using zyrtec/cla ritin in the a.m. and benadryl at night.F/u if symptoms worsen or no improvemen t. [id number] PAM DURAN [facility] ([facility]) [address] [place] [address] [id number] 5 05/17/2024 14:02:13 05/17/2024 15:32:02 Acute urticaria [id number] L50.9 Will increase zyrtec to BID. Add famotidine 20 mg po daily. Keep appt to see PCP this week. [id number] Real Tristan MD [facility] ([facility]) [address] [place] [address] [phone] 5 05/26/2024 13:34:23 05/26/2024 14:38:45 Diverticulosis of colon 114654387 K57.30 Iron defic iency anemia 77223522 D50.9 [id number] PAM DURAN [facility] ([facility]) [address] [place] [address] [phone] 5 05/31/2024 14:00:47 05/31/2024 14:34:02 Dysuria 48349486 R30.0 Cough 29133427 R05.9 [id number] Gomez Mark MD [facility] ([facility]) [address] [place] [address] [phone] 5 06/02/2024 11:16:09 06/17/2024 09:51:18 Acute upper respiratory infection 60944628 J06.9 Lower resp iratory tract infection 56598697 J22 [id number] Gomez Mark MD [facility] ([facility]) [address] [place] [address] [phone] 5 06/08/2024 12:12:42 06/09/2024 11:27:13 Iron deficiency anemia 75475645 D50.9 endoscopy is scheduled next week.hgb is trending upward. no sign of bleeding this month. she is watching really carefully. [id number] Gomez Mark MD [facility] ([facility]) [address] [place] [address] [phone] 5 06/18/2024 12:05:12 06/18/2024 15:15:19 Anemia due to blood loss 756618298 D50.0 her hgb in the ER was 8.0repeat was 9.3 yearshe was started on ferrous gluconate 324 mg po qday. she is taking that. Iron defic iency anemia 72922481 D50.9 endoscopy is scheduled next week.hgb is trending upward. no sign of bleeding this month. she is watching really carefully. [id number] Kirill Dunn MD [facility] ([facility]) [address] [place] [address] [phone] 5 09/03/2024 12:15:49 09/08/2024 07:18:03 Dysuria 27734248 R30.0 Acute urin екатерина tract infection 146286601 N39.0 [id number] Gomez Mark MD [facility] ([facility]) [address] [place] [address] [phone] 5 09/03/2024 12:41:26 09/04/2024 10:22:06 Iron deficiency anemia 56302688 D50.9 endoscopy is scheduled next week.hgb is trending upward. no sign of bleeding this month. she is watching really carefully. [id number] Gomez Mark MD [facility] ([facility]) [address] [place] [address] [phone] 5 09/23/2024 11:58:51 09/23/2024 15:38:21 Mild tricuspid valve regurgitation 821950112 I07.1 Mild natalie l valve regurgitation 707399076 I34.0 History of malignant neoplasm of breast 083171852 Z85.3 she follows with oncology at [facility]. she has her appt in December. 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 she had workup for mycobacter ium which was neg.PET scan was also done.they were stable for 5 years at the last CT with pulmonolog y. [id number] PAM DURAN [facility] ([facility]) [address] [place] [address] [phone] 5 11/17/2024 15:00:33 11/17/2024 15:43:10 Dysuria 44031983 R30.0 94806 Acute urin екатерина tract infection 009595158 N39.0 516674 Discussed to take antibiotic as prescribed until completedU rine culture ordered - will notify of any resultsEdu cated patient on increasing PO fluids of water, decreasing caffeine (coffee) and sugary drinks.Dis cussed importance of avoiding baths, scented soaps, douching, perfumes.M ay take OTC AZO for 1-2 days as box directs for burning sensation. Discussed if developmen t of abdominal pain, flank pain, fever, vomiting, worsening symptoms return to walk-in, PCP or ED for re-evaluat ion. Return to clinic if any changes, any worsening, any concernsPa tient verbalized understand ing of plan. [id number] PAM SOLANO [facility] ([facility]) [address] [place] [address] [phone] 5 11/27/2024 15:03:03 11/27/2024 15:37:50 Dysuria 28787830 R30.0 54670 Acute urin екатерина tract infection 895385128 N39.0 298662 UA results reviewed and discussed with pt. We will start antibiotic s. Pt will increase oral fluids and can use cranberry. Return to office with no improvemen t or any problems. Go to ER with severe worsening or severe problems.W e will obtain urine culture [id number] SHARMILA LOAIZA APRN [facility] ([facility]) [address] [place] [address] [phone] 5 12/19/2024 15:46:43 12/19/2024 16:52:06 Dysuria 68999490 R30.0 67015 Acute urin екатерина tract infection 161989405 N39.0 0663993 [id number] Gomez Mark MD [facility] ([facility]) [address] [place] [address] [phone] 5 12/31/2024 11:14:30 01/01/2025 12:22:07 Hypertensive disorder 69839650 I10 Recurrent major depressive episodes, mild 863589714 F33.0 41132 Chronic ur inary tract infection 332713326 N39.0 908232 Incontinence 58370452 N3 9.46 201616 [id number] Gomez Mark MD [facility] ([facility]) [address] [place] [address] [phone] 5 03/25/2025 11:38:53 03/26/2025 10:50:11 Recurrent major depressive episodes, mild 549174019 F33.0 02765 Hypertensive disorder 38 747468 I10 Mild natalie l valve regurgitation 180539984 I34.0 Iron defic iency anemia 13069841 D50.9 previous endoscopy after dx has been trending positively . willl recheck Malignant neoplasm of breast 932802768 C50.919 she follows with oncology at [facility]. she reports shehad her mammogram in november. will have her sign for results Screening mammography 24 464242 Z12.31 [id number] s/p lumpectomy and hormone blocking therapy Requires vaccination 723 809567 Z23 233681 [id number] GORDO MARK PA-C [facility] ([facility]) [address] [place] [address] [phone] 5 04/01/2025 11:11:53 04/01/2025 12:43:05 Physical examination 9334475 Z00.00 [id number] handout of advanced directives given and explained. Postmenopausal state 764 08812 Z78.0 204225 hx of taking estrogen shabana. Hypertensive disorder 38 246708 I10 stable. compliant with meds. Health Concerns Section Related Observation LastModified by Organization Detai ls LastModified Time None Recorded Concern Status LastModified by Organization Details LastModified Time None Recorded Advance Directives Directive None Recorded Payers Insurance Date Sequence Insurance Name Policy Number Policy Cho Covered Member ID Cho Member ID Guarantor Name 04/12/2025 1 [employer] Yaneli Hurst [id number] Yaneli Doan Natali 05/02/2025 1 [employer] (MEDICARE REPLACEMENT/ ADVANTAGE - PPO) Yaneli Hurst [id number] Yaneli Doan Natali Notes Date Note Type Note Provider Name and Address Organization Details Recorded Time 5 text/html ROS as noted in the HPI walk inPt was dx'd with a UTI on 11/17 and took ciprofloxacin. Cx was positive for E. coli. [place] better when antibiotic was finished but then 2 days ago the urinary urgency, frequency, and burning returned. PAM SOLANO [address] [place], [phone], [facility] [place] 11/27/2024 15:31:26 5 text/html walk in ptPt is having lower abdominal pain and burning that started this afternoon. SHARMILA LOAIZA APRN [address] [place], [phone], [facility] [place] 12/19/2024 16:27:06 5 text/html Lower Urinary Tract Symptoms (LUTS)Reported by PatientHPIFor quality, patient reportspainless. For severity, patient reportsimproving. For duration, patient reportschronicand3-4 weeks. For associated symptoms, patient reportsno abdominal pain,no chills,no fever,no nausea,no vomiting,no urgency, andno dysuria.Patient does not feel like she has any sxs today, but would like to make sure that her recent infection is gone because she had 3 different abx for uti's over the last month. She reports that it is not uncommon for her to have a uti every 3 months, but the frequency increased in the last month. she has no dysuria currently. she has no incerase in urgency or frequency from baseline.ROS as noted in the HPI Patient would like to get a referral to a clinical appeals auditor. She has been using estradiol and has noticed when she is using it that she feels like something has prolapsed. Gomez Mark MD [address] [place] [address], [phone], [facility] [place] 12/31/2024 11:43:05 5 text/html AnemiaReported by PatientHPIFor context, patient reportslow iron. For associated symptoms, patient reportsfatiguebut reportsno abdominal pain,no blood in stool, andno palpitations. For duration, patient reportsconstant. For timing, patient reportsgradual. For prior tests, patient reportslower endoscopyandupper endoscopy.ROS as noted in the HPI Pt was referred to a medical claims manager in [place]. They decided against any procedures for her prolapsed bladder. She is doing pelvic exercises. Gomez Mark MD [address] [place] [address], [phone], [facility] [place] 03/25/2025 12:23:51 5 text/html Medicare Annual Wellness VisitReported by [...] lumpectomy with estrogen shabana. GORDO MARK PA-C [address] [place] [address], [phone], [facility] [place], Matty 04/01/2025 12:37:07 OBGyn Episode No OBEpisode recorded.
--- OUTSIDE RECORDS SUMMARY | 2025-06-04 11:40 | XMS_ITS | Continuity of Care Document ---
Author Organization JEAN [facility], LJuneLShyam, [facility] ([facility]) Address [address] [place] [address] Care Team Providers Care Events And Promotions Assistant Name Role Phone GOMEZ MARK Primary Care Provider Unavailabl e Assessment Encounter Date Assessment Date Assessment LastModified by Organization Details LastModified Time 03/25/2025 03/25/2025 she did quit her iron and started an mvi with iron. [email or web address] Not available 03/25/2025 12:17:25 Plan of Treatment Reminders Order Date Submit Date Provider Last Modified By Organization Details Last Modified Time Details Appointments OFFICE VISIT ELSY 2025 10:45A M Gomez Mark MD Not available Not available Not available Lab CMP, serum or plasma 2024 025 [facility], [address], [address], [place], [address], 03/25/2025 14:38:33 CBC 2024 025 [facility], [address], [address], [place], [address], 03/25/2025 13:44:22 ferritin, serum or plasma 2024 025 [facility], [address], [place], [address], 03/26/2025 05:32:56 ESR (erythroc yte sedimenta tion rate), blood 2024 025 GER[facility] ([facility]), [address] [place], [address], 03/25/2025 15:44:24 Referral None recorded. Procedures None recorded. Surgeries None recorded. Imaging MAMMO, screening , digital, bilateral 2024 025 [facility], [address] [place], [address], 04/05/2025 08:53:59 Medication Orders None recorded. Patient TargetsNo targets recorded. Patient InstructionsNo instructions recorded. Reason for Referral None Reported. Results Created Date Observation Date Name Description Value Unit Range Abnormal Flag Note LastModifiedBy Organization Detail LastModifiedTime 03/25/2003/25/2025 CBC WBC 6.8 x10 4.0-10 .5 Not Available [facility] [address] [facility] [address], [place], [address], 03/25/2025 13:44:22 03/25/2003/25/2025 CBC RBC 4.40 x10 3.50-5 .50 Not Available [facility] [address] [facility] [address], [place], [address], 03/25/2025 13:44:22 03/25/2003/25/2025 CBC HGB 13.3 g/dL 12.0-1 6.0 Not Available [facility] [address] [facility] [address], [place], [address], 03/25/2025 13:44:22 03/25/2003/25/2025 CBC HCT 41.0 % 37.0-4 7.0 Not Available [facility] [address] [facility] [address], [place], [address], 03/25/2025 13:44:22 03/25/2003/25/2025 CBC MCV 93.1 fL 80.0-9 9.9 Not Available [facility] [address] [facility], [place], [address], 03/25/2025 13:44:22 03/25/2003/25/2025 CBC MCH 30.2 pg 27.0-3 2.0 Not Available [facility] [address] [facility], [place], [address], 03/25/2025 13:44:22 03/25/2003/25/2025 CBC MCHC 32.4 g/dL 32.0-3 6.0 Not Available [facility] [address] [facility], [place], [address], 03/25/2025 13:44:22 03/25/2003/25/2025 CBC RDW 13.1 % 11.5-1 4.5 Not Available [facility] [address] [facility], [place], [address], 03/25/2025 13:44:22 03/25/2003/25/2025 CBC plt 360.1 x10 140.0- 451.0 Not Available [facility] [address] [facility], [place], [address], 03/25/2025 13:44:22 03/25/2003/25/2025 CBC lymphocytes % 23.0 % 20.0-5 0.0 Not Available [facility] [address] [facility] 1, [place], [address], 03/25/2025 13:44:22 03/25/2003/25/2025 CBC granulcytes % 62.6 % 30.0-7 0.0 Not Available [facility] [address] [facility], [place], [address], 03/25/2025 13:44:22 03/25/2003/25/2025 CBC monocytes % 11.1 % 2.0-16 .0 Not Available [facility] [address] [address], [place], [address], 03/25/2025 13:44:22 03/25/20 25 03/25/2025 CBC granulcytes# 4.2 x10 Not Karoline ilable [facility] [address] [address], [place], [address], 03/25/2025 13:44:22 03/25/20 25 03/25/2025 CBC lymphocytes # 1.6 x10 Not Available [facility] [address] [address], [place], [address], 03/25/2025 13:44:22 03/25/20 25 03/25/2025 CBC monocytes # 0.8 x10 Not Avai lable [facility] [address] [address], [place], [address], 03/25/2025 13:44:22 03/25/2003/25/2025 CMP (FEMA LE) glucose 104.0 mg/dL 60.0-9 9.0 high Not Available [facility] [address] [address], [place], [address], 03/25/2025 14:38:33 03/25/2003/25/2025 CMP (FEMA LE) BUN (blood urea nitrogen) 20.0 mg/dL 10.0-2 6.0 Not Available [facility] [address], [address], 03/25/2025 14:38:33 03/25/20 25 03/25/2025 CMP (FEMA LE) creatinine (serum) 1.0 mg/dL 0.4-1. 5 Not Available [facility] [address] [facility] [address], [address], 03/25/2025 14:38:33 03/25/20 25 03/25/2025 CMP (FEMA LE) BUN/creatini ne ratio 20.00 ratio Not Available [facility] [address] [facility] Tony[address] [facility] 1, [place], [address], 03/25/2025 14:38:33 03/25/20 25 03/25/2025 CMP (FEMA LE) eGFR calculated 56.4 Not Available [facility] [address] [facility], [place], [address], 03/25/2025 14:38:33 03/25/20 25 03/25/2025 CMP (FEMA LE) total protein 8.3 g/dL 6.0-8. 5 Not Available [facility] [address] [facility] 1, [place], [address], 03/25/2025 14:38:33 03/25/20 25 03/25/2025 CMP (FEMA LE) total bilirubin 0.5 mg/dL 0.2-1. 3 Not Available [facility] [address] [facility], [place], [address], 03/25/2025 14:38:33 03/25/20 25 03/25/2025 CMP (FEMA LE) albumin 4.6 g/dL 3.5-5. 5 Not Available [facility] [address] [facility] 1, [place], [address], 03/25/2025 14:38:33 03/25/20 25 03/25/2025 CMP (FEMA LE) globulin 3.7 calc Not Available [facility] [address] [facility], [place], [address], 03/25/2025 14:38:33 03/25/20 25 03/25/2025 CMP (FEMA LE) AST (SGOT) 24.0 U/L 0.0-46 .0 Not Available [facility] [address] [facility], [place], [address], 03/25/2025 14:38:33 03/25/20 25 03/25/2025 CMP (FEMA LE) altv (SGPT) 11.0 U/L 13.0-6 9.0 abnormal Not Available [facility] [address] [facility], [place], [address], 03/25/2025 14:38:33 03/25/20 25 03/25/2025 CMP (FEMA LE) A/G ratio 1.2 ratio Not Available [facility] [address] [facility] [address], [place], [address], 03/25/2025 14:38:33 03/25/20 25 03/25/2025 CMP (FEMA LE) ALP phos 70.0 U/L 30.0-1 40.0 normal Not Available [facility] [address] [facility] [address], [place], [address], 03/25/2025 14:38:33 03/25/20 25 03/25/2025 CMP (FEMA LE) calcium 9.5 mg/dL 8.4-10 .5 Not Available [facility] [address] [facility] [address], [place], [address], 03/25/2025 14:38:33 03/25/20 25 03/25/2025 CMP (FEMA LE) sodium 135.0 mmol/ L 136.0- 145.0 low Not Available [facility] [address] [facility] [address], [place], [address], 03/25/2025 14:38:33 03/25/20 25 03/25/2025 CMP (FEMA LE) potassium 4.4 mmol/ L 3.5-5. 1 Not Available [facility] [address] [address], [place], [address], 03/25/2025 14:38:33 03/25/20 25 03/25/2025 CMP (FEMA LE) chloride 100.0 mmol/ L 98.0-1 10.0 normal Not Available [facility] [address] [address], [place], [address], 03/25/2025 14:38:33 03/25/20 25 03/25/2025 CMP (FEMA LE) C02 24.0 mmol/ L 22.0-3 1.0 Not Available [facility] [address] [address], [place], [address], 03/25/2025 14:38:33 03/25/20 25 03/25/2025 CMP (FEMA LE) anion gap 11.0 calc Not Available [facility] [address] [address], [place], [address], 03/25/2025 14:38:33 03/25/20 25 03/25/2025 CMP (FEMA LE) osmolality 281.9 calc Not Available [facility] [address] [address], [place], [address], 03/25/2025 14:38:33 03/25/20 25 03/26/2025 JIM TIN ferritin 77 NG/mL 16-288 normal Not Available [facility] [address] [place], [address], 03/26/2025 05:32:56 03/30/20 25 03/30/2025 ESR (eryt hrocy te sedim entat ion rate) , blood ESR 40 Not Available [facility] ([facility]) [address] [place], [address], 03/25/2025 15:43:37 03/25/20 12/15/2024 MAMMO , scree jose, digit al, bilat eral No observ ation record ed. [email or web address] [facility] [address] [place], [address], 04/08/2025 16:39:14 04/12/20 25 04/12/2025 DEXA No observ ation record ed. [facility] [address] [place], [address], 04/14/2025 17:38:26 04/23/20 25 12/15/2024 MAMMO , scree jose, digit al, bilat eral No observ ation record ed. [email or web address] [facility] [address] [place], [address], 04/26/2025 15:30:08 Result Notes None recorded. Problems Name Problem SNOMED Code Status Onset Date Resolution Date Notes Provider Name and Address Organization Details Recorded Time Malignan t neoplasm of breast 050501364 Active hx of MARY arshad [facility] 5 07:40:42 Tonsille ctomy Completed 201502/29/2016 Tonsille ctomy - Status is Inactive ; 02/29/20 16 12:19PM by Terri Cristobal CMT, Annotati on/Adden dum; Promoted ; acuity set as *; Not Available [facility] 3 03:10:49 Seasonal allergic rhinitis 807642118 Active 2022 ELZA arshad [facility] 3 14:26:34 Malignan t neoplasm of breast 972291517 Completed 202209/23/2024 MARY arshad [facility] 5 07:40:42 Mixed anxiety and depressi ve disorder 995786839 Active 2023 KATHY arshad [facility] 4 08:31:31 Hyperten sive disorder 05100527 Active 2023 KATHY arshad, [facility] 4 08:31:44 Carcinom a of breast 861738196 Completed 202309/23/2024 Jaja Cruz null, [facility] 5 12:26:28 Cardiome brian 1764494 Active 2023 KATHY CAICEDO null, [facility] 4 08:25:05 Hyperlip idemia 03020012 Active 2023 KATHY CAICEDO null, [facility] 4 08:25:13 Hyponatr emia 06535835 Active 2023 Jaja arshad, [facility] 5 12:27:37 Irritabl e bowel syndrome 19215098 Active 2023 KATHY arshad, [facility] 4 08:25:29 Stasis dermatit is 74088736 Completed 202309/23/2024 Jaja arshad, [facility] 5 12:23:34 Localize d osteoart hrosis 92315049 Active 2023 KATHY CAICEDO null, [facility] 4 08:26:45 Nodule of lung 521586626 Active 2023 right Jaja arshad, [facility] 5 12:27:37 Anemia due to blood loss 303301320 Completed 202309/23/2024 Jaja arshad, [facility] 5 12:23:34 Divertic ulosis of colon 408007188 [facility] 5 12:27:37 Iron deficien cy anemia 95763320 Active 2023 Jaja Cruz [facility] NisreenLJuneCJune 5 12:27:37 Mild mitral valve regurgit ation 871247817 Active 2024 MARY GEORGE [facility] 5 07:36:42 Mild tricuspi d valve regurgit ation 025560471 Active 2024 MARY GEORGE [facility], Evans.L.CJune 5 07:36:42 Recurren t major depressi ve episodes , mild 981864540 Active 2024 MARY GEORGE [facility] 5 07:43:09 Chronic urinary tract infectio n 967125714 Active 2024 MARY GEORGE [facility] 5 11:30:04 Problem Notes None recorded. Procedures Surgical History Date Name Laterality Status Provider Name and Address Organization Details Recorded Time 2024 bone density scan completed MARY JESUS [facility], Matyt 5 17:37:47 2024 Most Recent Mammogram completed MARY GEORGE [facility] NisreenLShyam 5 15:29:48 2024 mammography completed MARY JESUS [facility], NisreenLShyam 5 11:41:58 2023 esophagogastroduodenoscopy completed SEBASTIAN DAVID [facility], LJuneLShyam 4 12:03:20 2023 colonoscopy completed Jaja Anthony [facility], Matty 5 12:21:39 2013 exercise stress test - endocrine completed KATHY CAICEDO [facility] 4 08:30:20 2011 Date of Last Pap Smear completed JERALD MELARA [facility], [place] 3 11:52:51 lumpectomy of breast completed KATHY CAICEDO [facility] 3 16:48:22 Imaging Results None recorded. Procedure Notes None recorded. Medical Equipment None Reported. Allergies Allergen ID Allergen Name Allergen Category Reaction Reaction Severity Criticality Documentation Date Start Date Code Code System Note Provider Name and Address Organization Details Recorded Time 13571 losartan potassium medicatio n cough moderate low 02/02/2023 03746 0 RxNorm [facility] 4 15:25:28 Medications Name Sig Start [...] Not Available venlafaxi ne daily 02/04 completed 73380; Recorded 08/09/19 8:08AM by Kathy Caicedo LPN (Authori giana through Zina Bradshaw MD), Refill Request; Mail Order Quantity : 90 Capsule; Mail Order Days: 90 Days; Refill Quantity : 30; Capsule; Not Available Not Available Not Available metoprolo l succinate two times daily 03/01 completed 97284; Recorded 08/09/19 23 8:09AM by Kathy Caicedo LPN (Authori shelbyd through Zina Bradshaw MD), Refill Request; Mail [...] Updated DateTime 5 161.29 cm 25.3 kg/m2 74753.8 9 g 96.9 [degF] 58 /min 97 % 120/72 mm[Hg] Jaja Anthony [facility] 5 11:50:39 Social History Question Answer Notes LastModified by EveryRack Details LastModified Time Tobacco Smoking Status Never Smoker [facility] 10/15/2022 11:53:28 What Was The Date Of Your Most Recent Tobacco Screening? 03/25/2025 [email or web address] Information not available 03/25/2025 Sex: Unknown Functional Status Question Answer Note LastModified by EveryRack Details LastModified Time Do you use any illicit or recreational drugs? No [email or web address] Information not available 10/15/2022 Do you or have you ever used any other forms of tobacco or nicotine? No [email or web address] Information not available 06/02/2024 What is your level of alcohol consumption? None [email or web address] Information not available 10/15/2022 Do you or have you ever used any nicotine-free cigarettes, vape, or chewing tobacco? No [email or web address] Information not available 06/02/2024 Mental Status None recorded. Family History Relationship Description Onset Age of this Age Resolved Age Notes LastModified by Organization Details LastModified Time Mother Hypertensive disorder Heart block [email or web address] Not available 08/21/2023 08:28:12 Father Myocardial infarction HTN [email or web address] Not available 08:28:24 Medical History Condition Response [...] virus, trivalent, preservative 0 completed Not Available [facility] 02/02/2023 02:44:17 pneumococcal polysaccharide PPV23 0 completed Not Available [facility] 02/02/2023 02:44:17 Influenza, split virus, trivalent, preservative 3 completed Not Available [facility] 02/02/2023 02:44:17 Influenza, split virus, trivalent, preservative 5 completed Rosina arshad [facility] 02/07/2024 15:25:12 Influenza, split virus, trivalent, preservative 4 completed Not Available [facility] 02/02/2023 02:44:18 Influenza, split virus, trivalent, preservative 9 completed Rosina arshad [facility] 02/07/2024 15:25:12 zoster live 9 completed Not Available [facility] 02/02/2023 02:44:18 Influenza, split virus, trivalent, preservative 2 completed Not Available [facility] 02/02/2023 02:44:18 Influenza, split virus, trivalent, preservative 8 completed Not Available [facility] 02/02/2023 02:44:18 Influenza, split virus, trivalent, preservative 6 completed Rosina Freed null, [facility] 02/07/2024 15:25:12 Pneumococcal conjugate PCV 13 6 completed Rosina Freed null, [facility] 02/07/2024 15:25:12 Influenza, split virus, trivalent, preservative 7 completed Rosina Freed null, [facility] 02/07/2024 15:25:12 Influenza, split virus, trivalent, preservative 7 completed [facility] 02/07/2024 15:25:12 Td(adult) unspecified formulation 3 completed Not Available [facility] 02/02/2023 02:44:19 Pneumococcal conjugate PCV20, polysaccharide DET234 conjugate, adjuvant, PF 5 completed [facility] 03/25/2025 12:32:45 zoster recombinant 3 completed [facility] 02/07/2024 15:25:12 zoster recombinant 2 completed Rosina Freed null, [facility] 02/07/2024 15:25:12 Influenza, high-dose, quadrivalent, PF 1 completed Rosina Freed null, [facility] 02/07/2024 15:25:12 Influenza, high-dose, quadrivalent, PF 2 completed Rosina Freed [facility] 02/07/2024 15:25:12 COVID-19, mRNA, LNP-S, PF, 30 mcg/0.3 mL dose 1 completed Rosinakiana Freed [facility] 02/07/2024 15:25:12 COVID-19, mRNA, LNP-S, PF, 30 mcg/0.3 mL dose 1 completed Rosina Freed [facility] 02/07/2024 15:25:12 COVID-19, mRNA, LNP-S, PF, 30 mcg/0.3 mL dose 1 completed Rosina Freed [facility] 02/07/2024 15:25:12 Influenza, high-dose, trivalent, PF 9 completed Rosinakiana Freed [facility] 02/07/2024 15:25:12 Influenza, high-dose, trivalent, PF 6 completed Rosina Freed [facility] 02/07/2024 15:25:12 Influenza, high-dose, trivalent, PF 7 completed Rosina Freed [facility] 02/07/2024 15:25:12 Novel [id number] 9 completed Rosinakiana Freed [facility] 02/07/2024 15:25:12 Influenza, split virus, quadrivalent, PF 5 completed Rosinakiana Freed [facility] 02/07/2024 15:25:12 influenza, unspecified formulation 3 completed MARY JESUS [facility] 03/10/2024 16:35:58 Influenza, split virus, trivalent, PF 4 completed GORDO MARK PA-C [address] [place], [address], [facility], [place]. 03/23/2024 11:18:03 Past Encounters Encounter ID Performer Location Encounter Start Date Encounter Closed Date Diagnosis/Indication Diagnosis SNOMED-CT Code Diagnosis ICD10 Code Diagnosis IMO Codes Diagnosis Note [id number] Gomez Mark MD [facility] ([facility]) [address] [place] [address] 03/25/2025 11:38:53 03/26/2025 10:50:11 Recurrent major depressive episodes, mild 360924175 F33.0 31239 Hypertensive disorder 38 528741 I10 Mild natalie l valve regurgitation 053146591 I34.0 Iron defic iency anemia 98245512 D50.9 previous endoscopy after dx has been trending positively . willl recheck Malignant neoplasm of breast 450988444 C50.919 she follows with oncology at [facility]. she reports shehad her mammogram in november. will have her sign for results Screening mammography 24 695858 Z12.31 1419773796 s/p lumpectomy and hormone blocking therapy Requires vaccination 723 795034 Z23 119852 Health Concerns Section Related Observation LastModified by Organization Detai ls LastModified Time None Recorded Concern Status LastModified by Organization Details LastModified Time None Recorded Payers Encounter Date Sequence Insurance Name Policy Number Policy Cho Covered Member ID Cho Member ID Guarantor Name 03/25/2025 1 [employer] (MEDICARE REPLACEMENT/ ADVANTAGE - PPO) Yaneli Hurst [id number] Yaneli Hurst Notes Date Note Type Note Provider Name and Address Organization Details Recorded Time 03/25/2025 text/html AnemiaReported b y PatientHPIFor context, patient reportslow iron. For associated symptoms, patient reportsfatiguebut reportsno abdominal pain,no blood in stool, andno palpitations. For duration, patient reportsconstant. For timing, patient reportsgradual. For prior tests, patient reportslower endoscopyandupper endoscopy.ROS as noted in the HPI Pt was referred to a infrastructure manager in [place]. They decided against any procedures for her prolapsed bladder. She is doing pelvic exercises. Gomez Mark MD [address] [place] [address], [id number], [facility], [place] 03/25/2025 12:23:51 OBGyn Episode No OBEpisode recorded.
--- NOTE | 2025-06-04 11:56 | XRR_ITS ---
PROCEDURE INFORMATION: Exam: XR Chest Exam date and time: 06/04/2025 12:05 PM Age: 80 years old Clinical indication: Cough TECHNIQUE: Imaging protocol: Radiologic exam of the chest. Views: 1 view. COMPARISON: CR XR chest 2V* [id number] 06/02/2024 10:58 AM FINDINGS: Lungs: Pulmonary vessels are within normal limits. Left basilar linear density. Subtle infiltrates are seen in the left mid and lower lung field peripherally. Right lung is clear. Pleural spaces: No pneumothorax. Heart/Mediastinum: Cardiomediastinal silhouette is within normal limits. Bones/joints: Unremarkable. XR/XR chest 1V portable [id number] IMPRESSION: 1. Subtle infiltrates are seen in the left mid and lower lung field peripherally. Finding could represent pneumonic process. Imaging follow-up until resolution is advised. 2. Left basilar linear density. Finding could represent scarring or atelectasis.
--- NOTE | 2025-06-04 11:57 | W.ED.GENADLT ---
HPI - General Adult General: Chief complaint: Back Pain/Injury Stated complaint: back and shoulder pain Time Seen by Provider: 06/04/25 11:42 Source: patient and family Mode of arrival: ambulatory Limitations: no limitations History of Present Illness: Patient is an 80-year-old female presents to ED today stating I just do not feel good . Patient states she has had a cough/congestion over the past 2 to 3 days but she felt like symptoms were getting better. She had noticed some rib pains that she attributed to coughing but these are improved. She began noticing some pain to her right posterior shoulder and back today and felt like she could not get comfortable. She feels achy and weak. No documented fevers. She arrives in no acute distress with stable vital signs apart from hypertension. She states she does take amlodipine and metoprolol daily but has not taken these medications this morning. She is not complaining of chest pain or shortness of breath. Onset (ago): day(s) Relieving factors: none Exacerbating factors: none Associated symptoms: Reports no associated symptoms and malaise; Deny chest pain, dyspnea, headache(s), nausea, rash, palpitations, syncope or vomiting Treatments prior to arrival: none Related Data Home Medications ?Medication ?Instructions ?Recorded ?Confirmed calcium 500 mg (as 1 tab PO DAILY 04/22/20 11/17/24 carbonate)-vitamin D3 5 mcg (200 unit) tablet (Calcium 500 + D) [id number] C-Mn 1 cap PO DAILY 04/22/20 11/17/24 capsule (Glucosamine-Chondroitin Complex capsule) venlafaxine 75 mg capsule,extended 37.5 mg PO DAILY 04/22/20 11/17/24 release 24 hr ferrous sulfate 325 mg (65 mg 325 mg PO DAILY 05/19/24 11/17/24 iron) tablet (Feosol) Previous Rx's ?Medication ?Instructions ?Recorded amlodipine 5 mg tablet See Rx Instructions .Route 02/09/25 .COMPLEX #180 tabs metoprolol succinate 25 mg 12.5 mg (1/2 x 25 mg) PO DAILY #45 05/12/25 tablet,extended release 24 hr tabs amoxicillin 875 mg-potassium 1 tab PO BID #14 tabs 06/04/25 clavulanate 125 mg tablet azithromycin 250 mg tablet See Rx Instructions PO .COMPLEX #6 06/04/25 tabs Allergies Allergy/AdvReac Type Severity Reaction Status Date / Time losartan Allergy Mild cough Verified 11/17/24 16:13 Review of Systems Const: Reports: fatigue and malaise; Denies: fever(s), chills or body aches Eyes: Denies: change in vision or blurry vision Card: Denies: chest pain, palpitations, irregular heart rhythm, edema, swelling of feet/ankles, lightheadedness, syncope, pre-syncope, dyspnea on exertion, orthopnea, leg pain with exertion or acrocyanosis Resp: Reports: non-productive cough, pain on inspiration and chest congestion; Denies: dyspnea, productive cough, wheezing or hemoptysis GI: Denies: abdominal pain, nausea, vomiting, heartburn or diarrhea : Denies: flank pain, dysuria or hematuria Musc: Denies: neck pain, back pain, extremity pain, extremity swelling or joint pain Skin/Breast: Denies: rash Neuro: Denies: headache(s), numbness in extremities, weakness in extremities, sensory changes or dizziness PFSH ED PFSH: Medical History Hyperlipemia Surgical History H/O colonoscopy H/O right cataract extraction Family History Mother Hypertension Father Hypertension Stroke Social History Smoking and tobacco/nicotine status: never used tobacco/nicotine Second hand smoke exposure: Yes Alcohol intake: current Alcohol intake frequency: holidays/special occasions only Substance/Drug Use: never Lives independently: Yes Household members: spouse Housing: House Marital status: Current occupational status: retired Pets and animals: Yes Do you think of yourself as: Straight/Heterosexual Current gender identity: Female Physical Exam Const: COMMON NORMALS: no acute distress, average body habitus, patient oriented x3, no limitations, healthy appearing, alert and well nourished GENERAL APPEARANCE: cooperative ORIENTATION/CONSCIOUSNESS: Yes awake, Yes oriented to person, Yes oriented to place and Yes oriented to time HENMT: COMMON NORMALS: normocephalic and atraumatic HEAD & SCALP: normal to inspection, normocephalic and atraumatic Neck/C-Spine: COMMON NORMALS: full ROM, no lymphadenopathy, supple and no meningeal signs Chest: COMMONS NORMALS: normal inspection of the chest and normal palpation of entire chest wall Resp: COMMON NORMALS: normal respiratory effort and clear to auscultation bilaterally AUSCULTATION: clear to auscultation bilaterally Cardio: COMMON NORMALS: regular rate and regular rhythm RATE: regular rate RHYTHM: regular rhythm GI: COMMON NORMALS: Normal to inspection, nondistended, normoactive bowel sounds present, Soft to palpation, non-tender, No hepatosplenomegaly present and no masses PALPATION: Yes Soft to palpation and Yes No hepatosplenomegaly present : COMMON NORMALS: Yes no CVA tenderness BLADDER/KIDNEY EXAM: Yes no CVA tenderness Back/Pelvis: COMMON NORMALS: no CVA tenderness, thoracic and lumbar spine normal to inspection, no thoracic nor lumbar tenderness, thoraco-lumbar ROM normal and straight leg raise negative bilaterally Extremity: COMMON NORMALS: normal to inspection, full ROM, capillary refill normal, no joint enlargement, no clubbing, cyanosis or edema, no calf tenderness and no pedal edema GENERAL: Yes normal exam except as noted RIGHT UPPER EXTREMITY: Yes shoulder joint (full painless ROM R shoulder) Neuro: MAXIMO COMA SCALE: document GCS findings Steger coma scale eye opening: Spontaneous Maximo coma scale verbal response: Orientated Steger coma scale motor response: Obey commands Steger coma scale total score: 15 COMMON NORMALS: patient oriented x3, moves all extremities, no focal motor deficits, no sensory deficits noted and gait normal SENSORIUM/ORIENTATION: Yes alert, Yes oriented to person, Yes oriented to place and Yes oriented to time MENINGEAL SIGNS: Yes no meningeal signs Skin: COMMON NORMALS: no rashes or lesions noted GENERAL SKIN EXAM: no rashes or lesions noted Course Vital Signs: Vital signs: Vital Signs Temperature 98.7 F 06/04/25 11:34 Pulse Rate 67 06/04/25 13:30 Respiratory Rate 18 06/04/25 11:34 Blood Pressure 182/75 06/04/25 13:30 Pulse Oximetry 97 06/04/25 13:30 Oxygen Delivery Me thod Room Air 06/04/25 13:30 [facility] - General Adult Medical Decision Making Patient is an 80-year-old female here stating she does not feel well. She had complained of cough/congestion, weakness, pain to her right back and shoulder. No chest pain. No significant shortness of breath. Vital signs are stable upon arrival apart from hypertension but states she did not take her medication this morning. Blood work showing a normal white count. Her chemistry panel is unremarkable. UA was suspicious for infection with positive nitrates, 2+ leukocyte esterase, and 21-50 WBCs with 4+ bacteria. Will culture and placed on antibiotics. CXR showing subtle infiltrates in her left lung. Will place her on Augmentin/Azithromycin for coverage of CAP. The Augmentin should cover her for her acute cystitis. Recommend she follow-up with primary care next week. Return ED precautions discussed. Medical Records I reviewed the patient's medical records. Lab Data I reviewed the patient's lab results. 06/04/25 12:08 06/04/25 12:08 Radiology Impressions Chest X-Ray 06/04/25 11:56 IMPRESSION: 1. Subtle infiltrates are seen in the left mid and lower lung field peripherally. Finding could represent pneumonic process. Imaging follow-up until resolution is advised. 2. Left basilar linear density. Finding could represent scarring or atelectasis. Laboratory Results WBC 8.07 10^3/uL (3.29-11.43) 06/04/25 12:08 RBC 4.55 10^6/uL (3.85-5.65) 06/04/25 12:08 Hgb 13.20 g/dL (11.27-16.99) 06/04/25 12:08 Hct 40.8 % (36-47) 06/04/25 12:08 MCV 89.7 fl (85-98) 06/04/25 12:08 MCH 29.0 pg (27-33) 06/04/25 12:08 MCHC 32.4 g/dL (30-55) 06/04/25 12:08 RDW 12.4 % (12.1-15.1) 06/04/25 12:08 Plt Count 355 10^3/cmm (157-399) 06/04/25 12:08 MPV 8.6 fL (7.4-10.4) 06/04/25 12:08 Neut % (Auto) 67.1 % 06/04/25 12:08 Lymph % (Auto) 23.5 % 06/04/25 12:08 Crane % (Auto) 7.3 % 06/04/25 12:08 Eos % (Auto) 1.4 % 06/04/25 12:08 Baso % (Auto) 0.6 % 06/04/25 12:08 Neut # (Auto) 5.41 10^3/uL (1.8-7.7) 06/04/25 12:08 Lymph # (Auto) 1.9 10^3/uL (0.8-4.8) 06/04/25 12:08 Crane # (Auto) 0.6 10^3/uL (0.2-0.9) 06/04/25 12:08 Eos # (Auto) 0.1 10^3/uL (0.0-0.8) 06/04/25 12:08 Baso # (Auto) 0.1 10^3/uL (0.0-0.1) 06/04/25 12:08 Nucleated RBC % (auto) 0 % 06/04/25 12:08 Nucleated RBCs # 0.0 /100WBC 06/04/25 12:08 Sodium 133 mmol/L (136-145) L 06/04/25 12:08 Potassium 4.0 mmol/L (3.5-5.1) 06/04/25 12:08 Chloride 99 mmol/L (98-107) 06/04/25 12:08 Carbon Dioxide 20 mmol/L (22-29) L 06/04/25 12:08 Anion Gap 18.0 (5-19) 06/04/25 12:08 BUN 14 mg/dL (8-23) 06/04/25 12:08 Creatinine 0.7 mg/dL (0.5-0.9) 06/04/25 12:08 GFR Calculation Not Reportable 06/04/25 12:08 Glucose 105 mg/dL (65-115) 06/04/25 12:08 Calculated Osmolality 277 mOsm/kg (285-295) L 06/04/25 12:08 Calcium 9.1 mg/dL (8.5-10.5) 06/04/25 12:08 Total Bilirubin 0.3 mg/dL (0.15-1.2) 06/04/25 12:08 AST 21 U/L (0-32) 06/04/25 12:08 ALT 12 U/L (0-33) 06/04/25 12:08 Alkaline Phosphatase 68 U/L (35-105) 06/04/25 12:08 Total Protein 8.1 g/dL (6.6-8.7) 06/04/25 12:08 Albumin 4.4 g/dL (3.5-5.2) 06/04/25 12:08 Globulin 3.7 g/dL (1.3-4.6) 06/04/25 12:08 Urine Color Yellow (Yellow) 06/04/25 12:06 Urine Appearance Clear (CLEAR) 06/04/25 12:06 Urine pH 6.5 (5-7) 06/04/25 12:06 Ur Specific C[place]ield 1.010 (1.005-1.030) 06/04/25 12:06 Urine Protein Negative (Negative) 06/04/25 12:06 Urine Glucose (UA) Negative (Normal) 06/04/25 12:06 Urine Ketones Negative (Negative) 06/04/25 12:06 Urine Blood Negative (Negative) 06/04/25 12:06 Urine Nitrate Positive (Negative) A 06/04/25 12:06 Urine Bilirubin Negative (Negative) 06/04/25 12:06 Urine Urobilinogen 0.2 mg/dL (Negative) 06/04/25 12:06 Ur Leukocyte Esterase 2+ (Negative) A 06/04/25 12:06 Urine RBC 0-2 /hpf (0-2) 06/04/25 12:06 Urine WBC 21-50 /hpf (0-5) H 06/04/25 12:06 Ur Squamous Epith Cells 0-5 /hpf (0-5) 06/04/25 12:06 Amorphous Sediment Not Reportable 06/04/25 12:06 Urine Bacteria 4+ /hpf (NONE) H 06/04/25 12:06 Hyaline Casts 1.21 /lpf 06/04/25 12:06 Influenza A (PCR) Negative (Negative) 06/04/25 12:06 Influenza Type B (PCR) Negative (Negative) 06/04/25 12:06 RSV (PCR) Negative (Negative) 06/04/25 12:06 SARS-CoV-2 (PCR) Negative (Negative) 06/04/25 12:06 All radiology interpretation(s) finalized by discharge EKG Data EKG 1: EKG interpretation date: 06/04/25 EKG interpretation time: 13:36 Ischemic changes: acute STEMI Interpretation: Normal sinus rhythm Rate [address] elevation or depression changes noted Normal MS interval Computer generated interpretation: Chest X-Ray 06/04/25 11:56 IMPRESSION: 1. Subtle infiltrates are seen in the left mid and lower lung field peripherally. Finding could represent pneumonic process. Imaging follow-up until resolution is advised. 2. Left basilar linear density. Finding could represent scarring or atelectasis. Discharge Plan Discharge Patient Disposition: Home Clinical Impression: CAP (community acquired pneumonia) Qualifiers: Laterality: left Lung location: unspecified part of lung Qualified Code(s): J18.9 - Pneumonia, unspecified organism Acute cystitis Qualifiers: Hematuria presence: without hematuria Qualified Code(s): N30.00 - Acute cystitis without hematuria Condition: Stable Prescriptions: New azithromycin 250 mg tablet See Rx Instructions .ROUTE .COMPLEX Qty: 6 0RF Rx Instructions: take 500 mg today (day 1), then 250 mg for 4 days (days 2-5) amoxicillin-pot clavulanate 875-125 mg tablet 1 tab PO BID Qty: 14 0RF No Action venlafaxine 75 mg capsule,extended release 24hr 37.5 mg PO DAILY Glucosamine-Chondroitin Complx Capsule 1 cap PO DAILY calcium carbonate-vitamin D3 [Calcium 500 + D] 500 mg(1,250mg) -200 unit tablet 1 tab PO DAILY ferrous sulfate [Feosol] 325 mg (65 mg iron) tablet 325 mg PO DAILY amlodipine 5 mg tablet See Rx Instructions .ROUTE .COMPLEX Qty: 180 3RF Dose Instruction: TAKE 1 TABLET TWICE DAILY Rx Instructions: TAKE 1 TABLET TWICE DAILY metoprolol succinate 25 mg tablet extended release 24 hr 12.5 mg PO DAILY Qty: 45 4RF Discharge Orders: Discharge ED (Routine); Ordered 06/04/25 Ordered By: Ayesha Oneal Referrals: Oliver Mark MD [Primary Care Provider, Family Practice] Patient Instructions: Bacterial Pneumonia (DC), Urinary Tract Infection in Older Adults (ED), Patient Portal & Karissa Instructions Activity Restrictions/Additional Instructions: As we discussed, I would like you to follow-up with your primary care provider next week for reevaluation. You may return to the emergency department at anytime for any further concerns you may have. Will culture your urine for definitive confirmation of urinary tract infection. Print Language: Romanian Coding Level of Care Code ED Rn Cardiovascular for Judi Sales
[2025-06-04 12:17] LABS: Glucose Urine UA Negative (Normal); Nitrate Urine Positive (Negative); Specific Gravity, Urine 1.010 (1.005-1.030)
[2025-06-04 12:22] LABS: Add Urine Microscopic? YES
[2025-06-04 12:24] LABS: Hematocrit 40.8 % (36-47); Hemoglobin 13.20 g/dL (11.27-16.99); Mean Corpuscular HGB Conc 32.4 g/dL (30-55); Mean Corpuscular Hemoglobin 29.0 pg (27-33); Mean Corpuscular Volume 89.7 fl (85-98); Nucleated Red Blood Cells % 0 %; Platelet Count 355 10^3/cmm (157-399); Red Blood Count 4.55 10^6/uL (3.85-5.65); White Blood Count 8.07 10^3/uL (3.29-11.43)
[2025-06-04 12:38] VITALS: BP 161/82; PULSE 61; O2SAT 95
[2025-06-04 12:39] LABS: Alanine Aminotransferase 12 U/L (0-33); Albumin Level 4.4 g/dL (3.5-5.2); Alkaline Phosphatase 68 U/L (35-105); Aspartate Amino Transferase 21 U/L (0-32); Blood Urea Nitrogen 14 mg/dL (8-23); Calcium 9.1 mg/dL (8.5-10.5); Carbon Dioxide 20 mmol/L (22-29); Chloride 99 mmol/L (98-107); Globulin 3.7 g/dL (1.3-4.6); Glucose 105 mg/dL (65-115); Osmolality Calculated 277 mOsm/kg (285-295); Sodium 133 mmol/L (136-145); Total Protein 8.1 g/dL (6.6-8.7)
[2025-06-04 12:48] LABS: Anion Gap 18.0 (5-19); Potassium 4.0 mmol/L (3.5-5.1)
[2025-06-04 12:49] LABS: Respiratory Syncytial Virus Ce NEGATIVE (Negative); SARS-CoV-2 PCR NEGATIVE (Negative)
[2025-06-04 13:30] VITALS: BP 182/75; PULSE 67; O2SAT 97
[2025-06-04] MEDS: cefTRIAXone 1,000 MG in water for injection-sterile 2.1 ML 2.1 MG IM (13:36)
--- NOTE | 2025-06-04 16:45 | ECG_ITS ---
[facility]: 2025-06-04 Pat Name: Yaneli Hurst Department: Room: Gender: Female Poured [employer]man: : 1945 Requested By: Ayesha Oneal Order Number: [id number] A[place] MD: Dhaval Perkins M.D. Measurements Intervals [place] Rate: 68 P: 35 VT: 205 QRS: 2 QRSD: 83 T: 61 QT: 450 QTc: 481 Interpretive Statements SINUS RHYTHM WITH FIRST DEGREE AV BLOCK Compared to ECG 04/02/2024 14:42:51 Sinus bradycardia no longer present NO SIGNIFICANT CHANGE Electronically Signed On 06-05-2025 17:38:20 [employer]OLER [employer]ER by Dhaval Perkins M.D. [email or web address]
== END 2025-06-04 13:51 | disposition home or self-care (01) ==
PROVIDERS: Emergency Provider Physician Assistant; PCP Family Medicine
DX: J18.9 Pneumonia, unspecified organism (principal); N30.00 Acute cystitis without hematuria; Z11.52 Encounter for screening for COVID-19; E78.5 Hyperlipidemia, unspecified
CPT/HCPCS: 36415; 71045; 80053; 81001; 85025; 87077; 87086; 87186; 87637; 93005; 96372; 99285; J0696